=== PATIENT | female | born 1950 | race Two or more races ===

== ENCOUNTER 2021-03-14 17:51 | Emergency (ER) | payer MEDICARE, OTHER ==
[~2021-03-14] VITALS: Ht 144.8 cm; Wt 59.0 kg
[~2021-03-14 17:51] MED LIST: AMLO-489 PO; METF-370 PO; OMEP20CA74 PO
[2021-03-14 21:40] VITALS: BP 129/74
== END 2021-03-14 21:56 | disposition home or self-care (01) ==
LOC: ER 17:51
DX: S92.512A Displaced fracture of proximal phalanx of left lesser toe(s), initial encounter for closed fracture (principal); S83.92XA Sprain of unspecified site of left knee, initial encounter; M25.552 Pain in left hip; R51.9 Headache, unspecified; I10 Essential (primary) hypertension; K21.9 Gastro-esophageal reflux disease without esophagitis; Z79.899 Other long term (current) drug therapy; W01.0XXA Fall on same level from slipping, tripping and stumbling without subsequent striking against object, initial encounter; Y93.89 Activity, other specified; Y92.89 Other specified places as the place of occurrence of the external cause; Y99.8 Other external cause status
CPT/HCPCS: 70450; 73620; 73700

== ENCOUNTER 2023-06-13 18:43 | Inpatient (IN) | payer OTHER ==
[~2023-06-13] VITALS: Ht 142.2 cm; Wt 59.8 kg
[~2023-06-13 18:43] MED LIST changes: -AMLO-489 PO; +AMLO1TAB22 PO
[2023-06-13] MEDS ORDERED: ONDANSETRON ODT 4 MG TAB PO ONE (23:00)
[2023-06-13] MEDS ORDERED: HYDROcodone-ACET 5/325MG TAB PO ONE (23:00)
[2023-06-14] MEDS ORDERED: DexAMETHasone SOD PHOS 10MG/1ML VIAL INJ IV ONE (02:15)
[2023-06-14 02:22] LABS: Basophils # (auto) 0.1 10 ^3/uL (0-0.2); Basophils % (auto) 0.5 % (0.0-2.0); Eosinophils # (auto) 0.3 10 ^3/uL (0-0.8); Eosinophils % (auto) 2.4 % (0.0-7.0); Hematocrit 41.3 % (36.0-46.0); Hemoglobin 13.4 g/dL (12.2-16.2); Lymphocytes % (auto) 26.5 % (10.0-50.0); Mean Corpuscular Hgb Conc. 32.4 g/dL (32.0-36.0); Mean Corpuscular Volume 92.5 fL (80.0-100.0); Monocytes % (auto) 9.1 % (0.0-12.0); Neutrophils % (auto) 61.5 % (37.0-80.0); Nucleated Red Blood Cells % 0.2 %; Red Blood Cells 4.46 10^6/uL (4.0-5.20); Red Cell Distribution Width 14.8 % (11.8-14.3); White Blood Cell 11.4 10^3/uL (4.4-10.8)
[2023-06-14 02:28] LABS: Alanine Aminotransferase 14 U/L (7-40); Albumin 4.7 g/dL (3.2-4.8); Alkaline Phosphatase 95 U/L (46-116); Anion Gap 6 (5-15); Aspartate Aminotransferase 15 U/L (13-40); BUN/Creatinine Ratio 12.6 (10.0-20.0); Bilirubin, Total 0.6 mg/dL (0.2-1.0); Blood Urea Nitrogen 12 mg/dL (9-23); Carbon Dioxide 28 mmol/L (20-30); Chloride 107 mmol/L (98-107); Glucose 118 mg/dL (74-106); Potassium 3.3 mmol/L (3.5-5.1); Sodium 141 mmol/L (136-145); Total Protein 7.4 g/dL (5.7-8.2)
[2023-06-14] MEDS ORDERED: MORPHINE SULFATE INJ 2 MG/ml SYRG IV PRN (02:30)
[2023-06-14] MEDS ORDERED: ONDANSETRON HCL 4 MG/2 ML VIAL IV PRN (02:30)
[2023-06-14] MEDS ORDERED: ACETAMINOPHEN 325 MG TAB PO PRN ×2 (02:30)
[2023-06-14] MEDS ORDERED: HYDROcodone-ACET 5/325MG TAB PO PRN (02:30)
[2023-06-14 02:40] VITALS: PULSE 60; RESP 18; O2SAT 95
[2023-06-14] MEDS ORDERED: BACL20TA PO (05:50)
[2023-06-14] MEDS ORDERED: OMEP-448 PO (05:50)
[2023-06-14] MEDS ORDERED: GABA-1250 PO (05:50)
[2023-06-14] MEDS ORDERED: CALC-239 PO (05:52)
[2023-06-14 08:00] VITALS: PULSE 77; RESP 16; O2SAT 96
[2023-06-14 09:00] VITALS: BP_SYST 125; BP_SYST 155; BP_DIAS 48; BP_DIAS 72; PULSE 65; PULSE 82; RESP 16; RESP 17; TEMP 97.8; TEMP 98.2; O2SAT 95; O2SAT 99
[2023-06-14] MEDS ORDERED: PANTOPRAZOLE 40 MG TAB PO SCH (10:00)
[2023-06-14] MEDS ORDERED: amLODIPine BESYLATE 5 MG TAB PO SCH (10:00)
[2023-06-14 12:41] VITALS: BP 126/55; PULSE 60; RESP 16; TEMP 98.5; O2SAT 98
[2023-06-14] MEDS ORDERED: methylPREDNISolone SOD SUCC 40 MG/ML VL IV SCH (14:00)
[2023-06-14] MEDS ORDERED: PRED20TA2 PO ×2 (14:34→14:36)
[2023-06-14 16:12] VITALS: BP 123/59
[2023-06-14 16:45] VITALS: BP 121/49; PULSE 62; RESP 15; TEMP 98.9; O2SAT 98
== END 2023-06-14 16:30 | disposition home or self-care (01) | DRG 552 ==
LOC: ER 18:43 → OVERFLOW 06-14 02:18 → WEST WING 06-14 05:45
PROVIDERS: ADMIT Nurse Practitioner; ATTEND Nurse Practitioner
DX: M51.16 Intervertebral disc disorders with radiculopathy, lumbar region (principal); M48.061 Spinal stenosis, lumbar region without neurogenic claudication; G89.29 Other chronic pain; I10 Essential (primary) hypertension; M19.90 Unspecified osteoarthritis, unspecified site; K21.9 Gastro-esophageal reflux disease without esophagitis; Z85.42 Personal history of malignant neoplasm of other parts of uterus; Z90.710 Acquired absence of both cervix and uterus
CPT/HCPCS: 36415; 80053; 83880; 84484; 85025; G0378; Q0162

== ENCOUNTER 2023-11-10 09:38 | Emergency (ER) | payer OTHER ==
[~2023-11-10] VITALS: Ht 154.9 cm; Wt 59.1 kg
[~2023-11-10 09:38] MED LIST changes: +BACL20TA PO; +CALC-239 PO; +GABA-1250 PO; +OMEP-448 PO; +PRED20TA2 PO
[2023-11-10] MEDS: KETOROLAC TROMETH 30 MG/ML 1ML VIAL IM ONE (11:44)
[2023-11-10] MEDS ORDERED: IBUP1TAB5 PO (12:23)
[2023-11-10 12:32] VITALS: BP 143/77; PULSE 70; RESP 18; TEMP 98.1; O2SAT 98
== END 2023-11-10 12:35 | disposition home or self-care (01) ==
LOC: ER 09:38
DX: S43.401A Unspecified sprain of right shoulder joint, initial encounter (principal); S90.31XA Contusion of right foot, initial encounter; K21.9 Gastro-esophageal reflux disease without esophagitis; I10 Essential (primary) hypertension; Z90.710 Acquired absence of both cervix and uterus; X50.1XXA Overexertion from prolonged static or awkward postures, initial encounter; Y93.89 Activity, other specified; Y92.89 Other specified places as the place of occurrence of the external cause; Y99.8 Other external cause status
CPT/HCPCS: 73030; 73590; 73630; 96372; 99284; J1885

== ENCOUNTER 2024-09-17 23:24 | Inpatient (IN) | payer OTHER ==
[~2024-09-17] VITALS: Ht 142.2 cm; Wt 58.3 kg
[~2024-09-17 23:24] MED LIST changes: +IBUP1TAB5 PO
--- NOTE | 2024-09-17 23:48 | ED.PDOC ---
GI ASSESSMENT HPI Comments A 73 year old female presents to the ED with a chief complaint of abdominal pain onset today. Patient states she woke up today experiencing epigastric pain as well as nausea/ vomiting. Patient also states her household recently tested positive for Influenza. Patient has a past medical history of HTN, GERD, arthritis. Denies headache, dizziness, chest pain, shortness of breath, diarrhea, constipation, dysuria, hematuria. No other symptoms or modifying factors present at this time. Chief Complaint: Abdominal Pain Time Seen by MD: 23:42 Primary Care Provider: NONE Reviewed Notes: Medications, Allergies Allergies: Coded Allergies: NO KNOWN ALLERGIES (Unverified , 05/27/14) Home Meds Active Scripts Ibuprofen Micronized (Ibuprofen) 600 Mg Tab, 600 MG PO Q6HPRN PRN for 5 Days, #20 TAB Prov:SHA GU TRIMMING PRESS OPERATOR 11/10/23 Prednisone (Prednisone) 20 Mg Tab, 20 MG PO DAILY for 7 Days, #7 MG Prov:CHRISTOPHER CHOWDHURY CARTON WRAPPER 06/14/23 Reported Medications Calcium Ascorbate (Vitamin C) 500 Mg Tab, 500 MG PO DAILY, TAB 06/14/23 Gabapentin (Gabapentin) 300 Mg Cap, 300 MG PO HS, CAP 06/14/23 Baclofen (Baclofen) 20 Mg Tab, 10 MG PO BID, TAB 06/14/23 Omeprazole (Omep[address] Dr) 40 Mg Cap, 1 CAP PO DAILY 06/14/23 Omeprazole (PRILOSEC) 20 Mg Cap, 1 CAP PO HS, #90 CAP 1 Refill 05/28/14 Metformin Hydrochloride (Metformin Hcl) 500 Mg Tab, 500 MG PO DAILY, #0.5 MG 05/28/14 Amlodipine Besylate (Amlodipine Besylate) 5 Mg Tab, 5 MG PO DAILY for 30 Days, MG 05/28/14 Information Source: Patient Mode of Arrival: Ambulatory Timing: Hours Duration: Since onset Prehospital treatment: None Severity: Moderate Recent: None Recent Hx of: None Pain Location: Epigastric Modifying Factors: Nothing Associated sign and symptoms: Nausea, Vomiting, Abdominal Pain Past Medical History PAST MEDICAL HISTORY: Arthritis, GERD, HTN 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 History: Other Family History Family History: Unknown Social History Smoker: Non-Smoker Alcohol: Denies ETOH Use Drugs: Denies Drug Use Lives In: Home Constitutional: denies: chills, diaphoresis, fatigue, fever, malaise, sweats, weakness, others EENTM: denies: blurred vision, double vision, ear bleeding, ear discharge, ear drainage, ear pain, ear ringing, eye pain, eye redness, hearing loss, mouth pain, mouth swelling, nasal discharge, nose bleeding, nose congestion, nose pain, photophobia, tearing, throat pain, throat swelling, voice changes, others Respiratory: denies: cough, hemoptysis, orthopnea, SOB at rest, shortness of breath, SOB with excertion, stridor, wheezing, others Cardiovascular: denies: chest pain, dizzy spells, diaphoresis, Dyspnea on exertion, edema, irregular heart beat, left arm pain, lightheadedness, palpitations, PND, syncope, others Gastrointestinal: reports: abdominal pain, nausea, vomiting; denies: abdomen distended, blood streaked bowels, constipated, diarrhea, dysphagia, difficulty swallowing, hematemesis, melena, poor appetite, poor fluid intake, rectal bleeding, rectal pain, others Genitourinary: denies: abnormal vagina bleeding, burning, dyspareunia, dysuria, flank pain, frequency, hematuria, incontinence, pain, , vagina discharge, urgency, others Neurological: denies: dizziness, fainting, headache, left sided numbness, left sided weakness, numbness, paresthesia, pre-existing deficit, right sided numbness, right sided weakness, seizure, speech problems, tingling, tremors, weakness, others Musculoskeletal: denies: back pain, gout, joint pain, joint swelling, muscle pain, muscle stiffness, neck pain, others Integumetry: denies: bruises, change in color, change in hair/nails, dryness, laceration, lesions, lumps, rash, wounds, others Allergic/Immunocompromised: denies: Difficulty Healing, Frequent Infections, Hives, Itching, others Hematologic/Lymphatic: denies: anemia, blood clots, easy bleeding, easy bruising, swollen glands, others Endocrine: denies: excessive hunger, excessive sweating, excessive thirst, excessive urination, flushing, intolerance to cold, intolerance to heat, unexplained weight gain, unexplained weight loss, others Psychiatric: denies: anxiety, bipolar disorder, depression, hopeless, panic disorder, schizophrenia, sleepless, suicidal, others All Other Systems: Reviewed and Negative Physical Exam General Appearance: No Apparent Distress, Normal HEENT: Normal ENT Inspection, Pharynx Normal, TMs Normal Neck: Full Range of Motion, Non-Tender, Normal, Normal Inspection Respiratory: Chest Non-Tender, Lungs Clear, No Accessory Muscle Use, No Respira tory Distress, Normal Breath Sounds Cardiovascular: No Edema, No JVD, No Murmur, No Gallop, Normal Peripheral Pulses, Regular Rate/Rhythm Breast Exam: Deferred Gastrointestinal: No Organomegaly, Non Tender, No Pulsatile Mass, Normal Bowel Sounds, Soft Genitalia: Deferred Pelvic: Deferred Rectal: Deferred Extremities: No calf tenderness, Normal capillary refill, Normal inspection, Normal range of motion, Non-tender, No pedal edema Musculoskeletal : Apperance: Normal Neurologic: Alert, weatherization administrator II-XII nml as Tested, No Motor Deficits, Normal Affect, Normal Mood, No Sensory Deficits Cerebellar Function: Normal Reflexes: Normal Skin: Dry, Normal Color, Warm Lymphatic: No Adenopathy Was a procedure done? Was a procedure done?: No GI differential Dx Differential Diagnosis: Appendicitis, Gastritis/PUD, Gastroenteritis, Pancreatitis, UTI, Urolithiasis, Electrolyte Imbalance, Viral X-Ray, Labs, Meds, VS Vital Signs Date Time Temp Pulse Resp B/P (MAP) Pulse Ox O2 Delivery O2 Flow Rate FiO2 09/17/24 23:33 97.8 82 16 188/87 (120) 97 Lab Test 09/18/24 00:49 09/18/24 00:00 09/17/24 23:50 Range/Units Troponin I High Sensitivity Pending 3 L </=34 ng/L Urine Color Straw Yellow Urine Clarity Clear Clear Urine pH 7.0 5.0-9.0 Urine Specific Bruner 1.011 1.001-1.035 Urine Protein Negative Negative Urine Ketones Negative Negative Urine Blood Negative Negative /uL Urine Nitrite Negative Negative Urine Bilirubin Negative Negative Urine Urobilinogen Normal Negative mg/dL Urine Leukocyte Esterase Negative Negative /uL Urine RBC 1 0 - 4 /hpf Urine WBC <1 0 - 5 /hpf Urine Squamous Epithelial Cells Few <5 /hpf Urine Bacteria None seen None Seen /hpf Urine Glucose Normal Normal mg/dL White Blood Count 12.8 H 4.4-10.8 10^3/uL Red Blood Count 4.68 4.0-5.20 10^6/uL Hemoglobin 14.4 12.2-16.2 g/dL Hematocrit 43.7 36.0-46.0 % Mean Corpuscular Volume 93.4 80.0-100.0 fL Mean Corpuscular Hemoglobin 30.8 28.0-32.0 pg Mean Corpuscular Hemoglobin Concent 33.0 32.0-36.0 g/dL Red Cell Distribution Width 14.8 H 11.8-14.3 % Platelet Count 383 140-450 10^3/uL Mean Platelet Volume 8.1 6.9-10.8 fL Neutrophils (%) (Auto) 66.1 37.0-80.0 % Lymphocytes (%) (Auto) 22.4 10.0-50.0 % Monocytes (%) (Auto) 8.9 0.0-12.0 % Eosinophils (%) (Auto) 1.9 0.0-7.0 % Basophils (%) (Auto) 0.7 0.0-2.0 % Neutrophils # (Auto) 8.5 1.6-8.6 10 ^3/uL Lymphocytes # (Auto) 2.9 0.4-5.4 10 ^3/uL Monocytes # (Auto) 1.1 0-1.3 10 ^3/uL Eosinophils # (Auto) 0.2 0-0.8 10 ^3/uL Basophils # (Auto) 0.1 0-0.2 10 ^3/uL Nucleated Red Blood Cells 0.0 % Sodium Level 141 136-145 mmol/L Potassium Level 4.1 3.5-5.1 mmol/L Chloride Level 107 98-107 mmol/L Carbon Dioxide Level 28 20-31 mmol/L Anion Gap 6 5-15 Blood Urea Nitrogen 15 9-23 mg/dL Creatinine 0.79 0.550-1.02 mg/dL Glomerular Filtration Rate Calc 78 >90 mL/min BUN/Creatinine Ratio 19.0 10.0-20.0 Serum Glucose 117 H 74-106 mg/dL Lactic Acid Level 1.2 0.4-2.0 mmol/L Calcium Level 10.1 8.7-10.4 mg/dL Total Bilirubin 0.5 0.2-1.0 mg/dL Aspartate Amino Transferase (AST) 14 13-40 U/L Alanine Aminotransferase (ALT) 19 7-40 U/L Alkaline Phosphatase 111 46-116 U/L Total Protein 7.2 5.7-8.2 g/dL Albumin 4.4 3.2-4.8 g/dL Lipase 38 12-53 U/L [address] [address] Ph: [phone] DIAGNOSTIC IMAGING Diagnostic Imaging Report : [id number] Signed PATIENT: ÁNGELA CAVAZOS ACCT: [id number] UNIT: [id number] : 1950 LOC: ER ROOM / BED: / AGE / SEX: 73 / F ADM STATUS: REG ER SERVICE [id number] ORDERING PHYSICIAN: ROSITA BENZ MD PROCEDURE(s): ABPLIV - CT AB PEL WITH IV CON ONLY REASON: abdominal pain ORDER NUMBER(s): [id number], ACCESSION NUMBER(s): [id number] Exam: CT CT AB PEL WITH IV CON ONLY History: abdominal pain Comparison Study: None available at time of dictation. Contrast: Type of contrast: Omnipaque 300 Contrast injected: 100 mL Contrast wasted: 0 TECHNIQUE: A digital custody officer image was obtained. During the uneventful, intravenous administration of contrast material, multislice data acquisition was obtained through the abdomen and pelvis. The data set was subsequently reconstructed into axial images. Images were reviewed on a work station using a combination of axial and multiplanar using a variety of window levels and settings. Radiation Dose Information: CT Dose: CTDI volume is 13.36 mGy. Dose-length product is 752.22 mGy*cm FINDINGS: Lung Bases: No acute or significant lung base finding. Normal heart size. No pleural or pericardial effusion. Liver: The liver is normal in size. No focal lesions. Normal hepatic vascular enhancement. Gallbladder and Biliary Tree: Gallbladder has been surgically removed. Spleen: Unremarkable Pancreas: The pancreas is normal in appearance without focal lesions or abnormal enhancement. Adrenal Glands: Unremarkable Kidneys: Kidneys demonstrate normal symmetric enhancement without focal lesions, calculi or hydronephrosis. Bladder: Unremarkable Bowel: The stomach is grossly normal in appearance. Small bowel and colon are normal in caliber and distribution. Postop changes in the right abdomen. Fluid- filled small bowel not abnormally distended may represent enteritis. The appendix is not visualized; however, no secondary findings of acute appendicitis identified. Ascites: Absent Lymphadenopathy: No mesenteric, retroperitoneal or periportal lymphadenopathy. Abdominal Wall and Mesentery: Unremarkable. Vasculature: The visualized abdominal aorta is normal in size and caliber. Abdominal and pelvic vessels demonstrate normal enhancement. Pelvic Organs: Unremarkable Musculoskeletal: No aggressive focal bony lesions, acute fractures or dislocation. Soft tissues: Unremarkable. IMPRESSION: 1. Postop changes in the right abdomen. 2. Nondilated fluid-filled small bowel may represent enteritis. 3. Single loop of fluid-filled small bowel measuring 17 mm in diameter compressing the subcutaneous fat in the right lower quadrant. All CT scans at this medical facility are performed using dose modulation techniques as appropriate to a performed exam including the following: Automated exposure control was utilized; adjustment of the MA and/or KV according to patient size; and use of iterative reconstruction technique. HS:Y ATED BY: RAMIREZ GAUTAM Jr., DO DICTATED DATE/TIME: 09/18/2455 SIGNED BY: RAMIREZ GAUTAM Jr., DO SIGNED DATE/TIME: 09/18/2455 CC: [place] [id number] Ph: [phone] DIAGNOSTIC IMAGING Diagnostic Imaging Report : [id number] Signed PATIENT: ÁNGELA CAVAZOS ACCT: [id number] UNIT: [id number] : 1950 LOC: ER ROOM / BED: / AGE / SEX: 73 / F ADM STATUS: REG ER SERVICE 43 ORDERING PHYSICIAN: ROSITA BENZ MD PROCEDURE(s): CXRP - CHEST PORTABLE REASON: abdominal pain ORDER NUMBER(s): [id number], ACCESSION NUMBER(s): [id number] CHEST RADIOGRAPH Indication: abdominal pain Technique: Single frontal view of the chest was obtained Comparison: None FINDINGS: Lines and Tubes: None Lungs: No focal consolidation. Pleura: No effusion. No pneumothorax. Cardiomediastinal contours: Unremarkable Bones: No acute osseous abnormality. IMPRESSION: 1. No acute cardiopulmonary disease. HS:Y ATED BY: RAMIREZ GAUTAM Jr., DO DICTATED DATE/TIME: 09/18/2441 SIGNED BY: RAMIREZ GAUTAM Jr., DO SIGNED DATE/TIME: 09/18/24 0042 CC: Time of 1ST Reevaluation: 00:12 Reevaluation 1ST: Unchanged Patient Education/Counseling: Diagnosis, Treatment, Prognosis Family Education/Counseling: No Family Present Additional Information I reviewed the following notes from patient's past medical encounters: The following tests were ordered, and results were reviewed by me: CBC, CMP, LIPASE, LA W/REFLEX, UA, TROP, TROP, TROP, XY CHEST, CT AB PEL WITH IV CON I reviewed and agreed with the following test results read by other providers: XY CHEST, CT AB PEL WITH IV CON I discussed treatment and results with medical personnel and: patient Departure 1 Departure Time of Disposition: 01:38 (Patient presented with abdominal pain that was concerning for possible appendicits, gastritis, cholecystitis, colitis, gastr oenteritis, sbo, or orther possible surgical emergency. Data: 1. I ordered and reviewed the result of at least 3 labs including a CBC, BMP, and Urinalysis. 2. I independently interpreted the following tests: CT Abdoment and Pelvis is concerning for colitis and compression of the intra abdominal pad .Risk:This patient has a high risk of morbidity due to further diagnostic testing or treatment and may suffer from an acute abdominal process disorder. Workup reveals colitis intractable abdominal pain and patient should be admitted for further workup. and possible expert consultation. ) Impression: Primary Impression: Non-specific colitis Additional Impression: Intractable abdominal pain Disposition: 09 ADMITTED INPATIENT Admit to: Med Surg Condition: Serious Critical Care Note Critical Care Time?: Yes Critical care comment: Intractable abdominal pain Authorized and Performed by: Rosita Benz MD Total critical care time: Approximately 48 minutes Due to a high probability of clinically significant, life threatening deterioration, the patient required my highest level of preparedness to intervene emergently and I personally spent this critical care time directly and personally managing the patient. This critical care time included obtaining a history; examining the patient; pulse oximetry; ordering and review of studies; arranging urgent treatment with development of a management plan; evaluation of patient's response to treatment; frequent reassessment; and, discussions with other providers. This critical care time was performed to assess and manage the high probability of imminent, life-threatening deterioration that could result in multi-organ failure. It was exclusive of separately billable procedures and treating other patients and teaching time. Please see my other sections and the rest of the note for further information on patient assessment and treatment. Stability Stability form required: No I personally scribed for ROSITA BENZ MD ([email or web address]) on 09/17/24 at 23:48. Electronically submitted by Kimi Suazo ([email or web address]). I personally scribed for ROSITA BENZ MD ([email or web address]) on 09/17/24 at 23:49. Electronically submitted by Kimi Suazo ([email or web address]). I personally scribed for ROSITA BENZ MD ([email or web address]) on 09/18/24 at 01:18. Electronically submitted by Kimi Suazo ([email or web address]). ROSITA BENZ MD Sep 17, 2024 23:48
[2024-09-18] MEDS: IOHEXOL 300 MG/ML 100ML BOTTLE IJ ONE (00:06)
[2024-09-18 00:07] LABS: Basophils # (auto) 0.1 10 ^3/uL (0-0.2); Basophils % (auto) 0.7 % (0.0-2.0); Eosinophils # (auto) 0.2 10 ^3/uL (0-0.8); Eosinophils % (auto) 1.9 % (0.0-7.0); Hematocrit 43.7 % (36.0-46.0); Hemoglobin 14.4 g/dL (12.2-16.2); Lymphocytes # (auto) 2.9 10 ^3/uL (0.4-5.4); Lymphocytes % (auto) 22.4 % (10.0-50.0); Mean Corpuscular Hemoglobin 30.8 pg (28.0-32.0); Mean Corpuscular Volume 93.4 fL (80.0-100.0); Monocytes # (auto) 1.1 10 ^3/uL (0-1.3); Monocytes % (auto) 8.9 % (0.0-12.0); Neutrophils # (auto) 8.5 10 ^3/uL (1.6-8.6); Neutrophils % (auto) 66.1 % (37.0-80.0); Platelet Count (auto) 383 10^3/uL (140-450); Red Blood Cells 4.68 10^6/uL (4.0-5.20); Red Cell Distribution Width 14.8 % (11.8-14.3); White Blood Cell 12.8 10^3/uL (4.4-10.8)
[2024-09-18 00:18] LABS: Alanine Aminotransferase 19 U/L (7-40); Albumin 4.4 g/dL (3.2-4.8); Alkaline Phosphatase 111 U/L (46-116); Anion Gap 6 (5-15); Aspartate Aminotransferase 14 U/L (13-40); Calcium 10.1 mg/dL (8.7-10.4); Carbon Dioxide 28 mmol/L (20-31); Lipase 38 U/L (12-53); Potassium 4.1 mmol/L (3.5-5.1); Sodium 141 mmol/L (136-145)
[2024-09-18 00:19] LABS: Urine Bacteria None Seen /hpf (None Seen)
[2024-09-18 00:19] LABS: Bilirubin, Total 0.5 mg/dL (0.2-1.0); Total Protein 7.2 g/dL (5.7-8.2)
[2024-09-18 00:20] LABS: Chloride 107 mmol/L (98-107); Glucose 117 mg/dL (74-106)
[2024-09-18 00:29] LABS: Blood Urea Nitrogen 15 mg/dL (9-23)
[2024-09-18 00:36] LABS: Urine Blood Negative /uL (Negative); Urine Clarity Clear (Clear); Urine Protein, UAD Negative (Negative); Urine Specific Gravity 1.011 (1.001-1.035); Urine Squamous Epithelial Cell FEW /hpf (<5); Urine Urobilinogen Normal (Negative); Urine WBC <1 /hpf (0 - 5)
[2024-09-18 00:38] LABS: Urine Color STRAW (Yellow)
--- NOTE | 2024-09-18 00:45 | DVH ---
CHEST RADIOGRAPH Indication: abdominal pain Technique: Single frontal view of the chest was obtained Comparison: None FINDINGS: Lines and Tubes: None Lungs: No focal consolidation. Pleura: No effusion. No pneumothorax. Cardiomediastinal contours: Unremarkable Bones: No acute osseous abnormality. IMPRESSION: 1. No acute cardiopulmonary disease. HS:Y
--- NOTE | 2024-09-18 00:58 | DVH ---
Exam: CT CT AB PEL WITH IV CON ONLY History: abdominal pain Comparison Study: None available at time of dictation. Contrast: Type of contrast: Omnipaque 300 Contrast injected: 100 mL Contrast wasted: 0 TECHNIQUE: A digital diamond finishing supervisor image was obtained. During the uneventful, intravenous administration of c ontrast material, multislice data acquisition was obtained through the abdomen and pelvis. The data s et was subsequently reconstructed into axial images. Images were reviewed on a work station using a c ombination of axial and multiplanar using a variety of window levels and settings. Radiation Dose Information: CT Dose: CTDI volume is 13.36 mGy. Dose-length product is 752.22 mGy*cm FINDINGS: Lung Bases: No acute or significant lung base finding. Normal heart size. No pleural or pericardial effusion. Liver: The liver is normal in size. No focal lesions. Normal hepatic vascular enhancement. Gallbladder and Biliary Tree: Gallbladder has been surgically removed. Spleen: Unremarkable Pancreas: The pancreas is normal in appearance without focal lesions or abnormal enhancement. Adrenal Glands: Unremarkable Kidneys: Kidneys demonstrate normal symmetric enhancement without focal lesions, calculi or hydroneph rosis. Bladder: Unremarkable Bowel: The stomach is grossly normal in appearance. Small bowel and colon are normal in caliber and d istribution. Postop changes in the right abdomen. Fluid-filled small bowel not abnormally distended m ay represent enteritis. The appendix is not visualized; however, no secondary findings of acute appe ndicitis identified. Ascites: Absent Lymphadenopathy: No mesenteric, retroperitoneal or periportal lymphadenopathy. Abdominal Wall and Mesentery: Unremarkable. Vasculature: The visualized abdominal aorta is normal in size and caliber. Abdominal and pelvic vess els demonstrate normal enhancement. Pelvic Organs: Unremarkable Musculoskeletal: No aggressive focal bony lesions, acute fractures or dislocation. Soft tissues: Unremarkable. IMPRESSION: 1. Postop changes in the right abdomen. 2. Nondilated fluid-filled small bowel may represent enteritis. 3. Single loop of fluid-filled small bowel measuring 17 mm in diameter compressing the subcutaneous f at in the right lower quadrant. All CT scans at this medical facility are performed using dose modulation techniques as appropriate t o a performed exam including the following: Automated exposure control was utilized; adjustment of th e MA and/or KV according to patient size; and use of iterative reconstruction technique. HS:Y
[2024-09-18] MEDS: SODIUM CHLORIDE 0.9% 1,000 ML IV ONE (02:12)
[2024-09-18] MEDS: metroNIDAZOLE 500MG/100ML 100 ML IV ONE (02:14)
--- NOTE | 2024-09-18 02:20 | DVHHPRES ---
History of Present Illness Resident Creating Document: ROLAND HSU RESIDENT History of Present Illness This is a 73-year-old female with past medical history of hypertension, GERD, arthritis, prediabetes presented to the ED with a chief complaint of intractable abdominal pain and vomiting since morning prior to this admission. Patient stated that she has experiencing abdominal pain which was since morning which was sharp stabbing pain, constant localized, 10/10 and associated with 1 episodes of vomiting. The patient denies headache, chills, fever, malaise, dizz iness, diaphoresis, chest pain, nausea, dysuria, hematuria or any change in the bowel movement. Past Medical History Hypertension, GERD, arthritis, prediabetes Past Surgical History Total abdominal hysterectomy for uterine cancer in 2018, cholecystectomy, appendectomy, umbilical hernia repair and stomach surgery in 1985 Family History Type 2 diabetes mellitus runs in the family Past Social History Lives with daughter Nonsmoker, nonalcoholic and never tried any drugs Review of Systems Constitutional: No: Fever, Chills, Sweats, Weakness, Malaise, Other Eyes: No: Pain, Vision change, Conjunctivae inflammation, Eyelid inflammation, Other, Redness ENT: No: Ear pain, Ear discharge, Nose pain, Nose discharge, Nose congestion, Mouth pain, Mouth swelling, Throat pain, Throat swelling, Other Respiratory: No: Cough, Dry, Shortness of breath, SOB with excertion, Wheezing, Hemoptysis, Pleuritic Pain, Sputum, Wheezing, Other Cardiovascular: No: Chest Pain, Palpitations, Orthopnea, Paroxysmal Noc. Dyspnea, Edema, Lt Headedness, Other Gastrointestinal: Vomiting, Abdominal Pain; No: Nausea, Diarrhea, Constipation, Melena, Hematochezia, Other Genitourinary: No Dysuria, No Frequency, No Incontinence, No Hematuria, No Retention, No Other Musculoskeletal: No: other, neck pain, shoulder pain, arm pain, back pain, hand pain, leg pain, foot pain Skin: No: Rash, Lesions, Jaundice, Bruising, Other Neurological: No: Weakness, Numbness, Incoordination, Change in speech, Confusion, Seizures, Other Allergies: Coded Allergies: NO KNOWN ALLERGIES (Unverified , 05/27/14) Exam Vital Signs Vital Signs Date Time Temp Pulse Resp B/P (MAP) Pulse Ox O2 Delivery O2 Flow Rate FiO2 09/17/24 23:33 97.8 82 16 188/87 (120) 97 Exam Physical examination: General Appearance: Alert, Oriented X3, Cooperative, No acute distress HEENT: Atraumatic, PERRLA, EOMI, Mucous membrane moist/pink Respiratory: Clear to auscultation, Normal air movement Cardiovascular: Regular rate, Normal S1, Normal S2, No murmurs, no chest wall tenderness Abdominal: Normal bowel sounds, Soft, mild tenderness in the lower abdomen, No hepatospenomegaly, No masses Extremities: No clubbing, No cyanosis, No edema, Normal pulses, No tenderness/swelling Skin: No rashes, No breakdown, No significant lesion Neuro: Normal gait, Normal speech, Strength at 5/5 X4 ext, Normal tone, Se nsation intact, grossly intact cranial nerves Psych/Mental Status: Mental status NL, Mood NL Labs/Xrays Labs Test 09/18/24 00:49 09/18/24 00:00 09/17/24 23:50 Range/Units Troponin I High Sensitivity 3 L </=34 ng/L Urine Color Straw Yellow Urine Clarity Clear Clear Urine pH 7.0 5.0-9.0 Urine Specific [place] 1.011 1.001-1.035 Urine Protein Negative Negative Urine Ketones Negative Negative Urine Blood Negative Negative /uL Urine Nitrite Negative Negative Urine Bilirubin Negative Negative Urine Urobilinogen Normal Negative mg/dL Urine Leukocyte Esterase Negative Negative /uL Urine RBC 1 0 - 4 /hpf Urine WBC <1 0 - 5 /hpf Urine Squamous Epithelial Cells Few <5 /hpf Urine Bacteria None seen None Seen /hpf Urine Glucose Normal Normal mg/dL White Blood Count 12.8 H 4.4-10.8 10^3/uL Red Blood Count 4.68 4.0-5.20 10^6/uL Hemoglobin 14.4 12.2-16.2 g/dL Hematocrit 43.7 36.0-46.0 % Mean Corpuscular Volume 93.4 80.0-100.0 fL Mean Corpuscular Hemoglobin 30.8 28.0-32.0 pg Mean Corpuscular Hemoglobin Concent 33.0 32.0-36.0 g/dL Red Cell Distribution Width 14.8 H 11.8-14.3 % Platelet Count 383 140-450 10^3/uL Mean Platelet Volume 8.1 6.9-10.8 fL Neutrophils (%) (Auto) 66.1 37.0-80.0 % Lymphocytes (%) (Auto) 22.4 10.0-50.0 % Monocytes (%) (Auto) 8.9 0.0-12.0 % Eosinophils (%) (Auto) 1.9 0.0-7.0 % Basophils (%) (Auto) 0.7 0.0-2.0 % Neutrophils # (Auto) 8.5 1.6-8.6 10 ^3/uL Lymphocytes # (Auto) 2.9 0.4-5.4 10 ^3/uL Monocytes # (Auto) 1.1 0-1.3 10 ^3/uL Eosinophils # (Auto) 0.2 0-0.8 10 ^3/uL Basophils # (Auto) 0.1 0-0.2 10 ^3/uL Nucleated Red Blood Cells 0.0 % Sodium Level 141 136-145 mmol/L Potassium Level 4.1 3.5-5.1 mmol/L Chloride Level 107 98-107 mmol/L Carbon Dioxide Level 28 20-31 mmol/L Anion Gap 6 5-15 Blood Urea Nitrogen 15 9-23 mg/dL Creatinine 0.79 0.550-1.02 mg/dL Glomerular Filtration Rate Calc 78 >90 mL/min BUN/Creatinine Ratio 19.0 10.0-20.0 Serum Glucose 117 H 74-106 mg/dL Lactic Acid Level 1.2 0.4-2.0 mmol/L Calcium Level 10.1 8.7-10.4 mg/dL Total Bilirubin 0.5 0.2-1.0 mg/dL Aspartate Amino Transferase (AST) 14 13-40 U/L Alanine Aminotransferase (ALT) 19 7-40 U/L Alkaline Phosphatase 111 46-116 U/L Total Protein 7.2 5.7-8.2 g/dL Albumin 4.4 3.2-4.8 g/dL Lipase 38 12-53 U/L Assessment/Plan Assessment/Plan Assessment and plan: # Intractable abdominal pain and vomiting likely due to enteritis - CBC revealed leukocytosis - Lipase is normal - CT abdomen pelvis demonstrated nondilated fluid-filled small bowel may represent enteritis. - Clear liquid diet - IV normal saline 75 mL per hour - cefazolin 2 g IV once and metronidazole 500 mg IV once - Morphine 4 mg IV once - ondansetron 4 mg IV Q 8 p.r.n. - IV ceftriaxone 1 g daily and IV metronidazole 500 mg t.i.d. # Hypertensive urgency - IV hydralazine 10 mg q.6 p.r.n. - Amlodipine 5 mg p.o. daily # Prediabetes, hemoglobin A1c 6 - Counseled patient regarding low carb diet, lifestyle modification and physical exercise # History of GERD - Protonix 40 mg po daily # DVT prophylaxis - Lovenox 40 mg sc daily Goal of Care discussed with the patient for more than 20 minutes full code Plan discussed with Dr. Feliz Plan discussed with: Patient, Other My Orders Orders - ROLAND HSU Procedure Category Date Status Time Admit ADMIT 09/18/24 Transmitted 02:14 Complete Blood Count LAB 09/18/24 Verified 04:00 NS PHA 09/18/24 Verified 02:30 Pantoprazole PHA 09/18/24 Verified (Protonix) 10:00 Ondansetron Hcl PHA 09/18/24 Verified (Zofran) 06:00 Blood Culture HAYDEN 09/18/24 Verified 02:16 Date of Service: Sep 18, 2024 Billing Provider: VARUN FELIZ MD Common Visit Codes: [id number] INP/OBS CARE (HIGH) Secondary Visit Codes: [id number] CARE PLAN 30 MINUTES ROLAND HSU Sep 18, 2024 02:20 VARUN FELIZ MD Sep 18, 2024 11:50
[2024-09-18] MEDS: ONDANSETRON HCL 4 MG/2 ML VIAL IV ONE (02:29)
[2024-09-18] MEDS: MORPHINE SULFATE 4 MG/ML SYR/VIAL IV ONE (02:30)
[2024-09-18 03:12] LABS: Basophils # (auto) 0.1 10 ^3/uL (0-0.2); Basophils % (auto) 0.9 % (0.0-2.0); Eosinophils # (auto) 0.2 10 ^3/uL (0-0.8); Eosinophils % (auto) 1.4 % (0.0-7.0); Hematocrit 41.3 % (36.0-46.0); Hemoglobin 13.5 g/dL (12.2-16.2); Lymphocytes # (auto) 2.6 10 ^3/uL (0.4-5.4); Mean Corpuscular Hemoglobin 30.7 pg (28.0-32.0); Mean Corpuscular Hgb Conc. 32.6 g/dL (32.0-36.0); Mean Corpuscular Volume 94.4 fL (80.0-100.0); Monocytes # (auto) 1.1 10 ^3/uL (0-1.3); Monocytes % (auto) 8.9 % (0.0-12.0); Neutrophils # (auto) 8.8 10 ^3/uL (1.6-8.6); Neutrophils % (auto) 68.8 % (37.0-80.0); Nucleated Red Blood Cells % 0.1 %; Platelet Count (auto) 338 10^3/uL (140-450); Red Blood Cells 4.38 10^6/uL (4.0-5.20); Red Cell Distribution Width 14.6 % (11.8-14.3); White Blood Cell 12.8 10^3/uL (4.4-10.8)
[2024-09-18] MEDS: SODIUM CHLORIDE 0.9% 1,000 ML IV SCH (03:20)
[2024-09-18] MEDS: ceFAZolin 2 GM/D5W50ml 50 ML IV ONE (04:21)
[2024-09-18 05:40] VITALS: O2SAT 96
[2024-09-18] MEDS ORDERED: ONDANSETRON HCL 4 MG/2 ML VIAL IV PRN (06:00)
[2024-09-18] MEDS: PANTOPRAZOLE 40 MG TAB PO SCH (06:49)
[2024-09-18 07:21] LABS: COVID19 ANTIGEN SOFIA FIA NEGATIVE (NEGATIVE)
[2024-09-18 07:22] LABS: Rapid Influenza A Negative (Negative); Rapid Influenza B Negative (Negative)
[2024-09-18 09:00] VITALS: BP 141/51; PULSE 58; RESP 16; TEMP 98; O2SAT 97
[2024-09-18] MEDS ORDERED: PANTOPRAZOLE 40 MG/10 ML VIAL INJ IV SCH (10:00)
[2024-09-18 10:27] LABS: Hepatitis B Surface Antigen Negative (Negative); Hepatitis C Antibody Negative (Negative)
[2024-09-18] MEDS: metroNIDAZOLE 500MG/100ML 100 ML IV SCH (11:18)
[2024-09-18] MEDS: amLODIPine BESYLATE 5 MG TAB PO SCH (11:30)
[2024-09-18 13:00] VITALS: BP 137/64; PULSE 60; RESP 16; TEMP 98.9; O2SAT 94
[2024-09-18] MEDS ORDERED: MORPHINE SULFATE INJ 2 MG/ml SYRG IV PRN (13:45)
[2024-09-18 17:00] VITALS: BP 121/64; PULSE 64; RESP 16; TEMP 97.9; O2SAT 94
[2024-09-18] MEDS: GABAPENTIN 300 MG CAP PO SCH (20:29)
[2024-09-18 21:00] VITALS: BP 140/64; PULSE 89; RESP 13; TEMP 98.3; O2SAT 95
[2024-09-19 01:00] VITALS: BP 134/63; PULSE 86; RESP 18; TEMP 97.5; O2SAT 96
[2024-09-19 05:00] VITALS: BP 135/61; PULSE 85; RESP 16; TEMP 97.9; O2SAT 97
[2024-09-19 09:00] VITALS: BP 146/69; PULSE 57; RESP 16; TEMP 98.6; O2SAT 96
[2024-09-19] MEDS: cefTRIAXone 1GM/50ML D5W 50 ML IV SCH (09:33)
--- NOTE | 2024-09-19 12:54 | DVHPN2 ---
Progress Note - Dictate Date Seen: Sep 19, 2024 Medical Necessity Reason Pt with a Central, PICC or Fol: No vital signs Vital Sign Date Time Temp Pulse Resp B/P (MAP) Pulse Ox O2 Delivery O2 Flow Rate FiO2 09/19/24 09:33 146/69 09/19/24 09:00 98.6 57 16 96 98.6 09/19/24 08:00 Room Air* 0 21 Total Intake and Output 09/18/24 09/18/24 09/19/24 15:00 23:00 07:00 Intake Total 480 ml 1060 ml 1290 ml Output Total 2 ml Balance 480 ml 1060 ml 1288 ml medications Current Medications Medications Dose Ordered Sig/Sai Route Start Time Stop Time Status Last Admin Dose Admin Sodium Chloride 1,000 ml @ 75 mls/hr [id number] IV 09/18/24 02:30 09/19/24 01:41 75 MLS/HR Ondansetron HCl 4 mg Q8HPRN PRN IV 09/18/24 06:00 Amlodipine Besylate 5 mg DAILY PO 09/18/24 10:00 09/19/24 09:33 5 MG Gabapentin 300 mg HS PO 09/18/24 22:00 09/18/24 20:29 300 MG Ceftriaxone Sodium 50 ml @ 100 mls/hr DAILY@09 IV 09/19/24 09:00 09/19/24 09:33 100 MLS/HR Metronidazole 100 ml @ 100 mls/hr Q8H IV 09/18/24 10:00 09/19/24 10:58 100 MLS/HR Hydralazine HCl 10 mg Q6HP PRN IV 09/18/24 03:15 Pantoprazole Sodium 40 mg DAILY@0600 PO 09/18/24 06:00 09/19/24 05:56 40 MG Acetaminophen/ Hydrocodone Bitart 1 tab Q4HPRN PRN PO 09/18/24 13:45 Morphine Sulfate 2 mg Q4HPRN PRN IV 09/18/24 13:45 Ondansetron HCl 4 mg Q4HPRN PRN IV 09/18/24 13:45 objective General Appearance: alert, no distress HEENT: EOMI, PERRLA, normal external inspect of ears, no icterus, no nasal drainage Neck: no carotid bruit, no jugular venous distention (JVD), no lymphadenopathy Chest: normal thorax Respiratory: clear to auscultation, normal air movement Cardiovascular: regular rate and rhythm, no diastolic murmur, no jugular venous distention (JVD), no rub, no systolic murmur Abdominal: soft, no hepatomegaly, no mass, no splenomegaly, no tenderness Genitourinary: grossly normal external Musculoskeletal: no joint tenderness, no swelling Extremities: normal pulses, no calf tenderness, no clubbing, no cyanosis, no edema Skin: no bruising, no jaundice, no rash Neurological: alert, No focal deficit laboratory and microbiology Laboratory Tests 09/18/24 02:30 09/17/24 23:50 Test 09/17/24 23:50 Range/Units Serum Glucose 117 H 74-106 mg/dL Problem List 1. Intractable abdominal pain most likely enteritis vs. gastric ulcer Monitor, GI consult, clear liquid diet 2. GERD Monitor, GI consult, PPI 3. Enteritis Monitor, GI consult, clear liquid diet 4. Hypertensive urgency Monitor, antihypertensives Assessment/Plan Subjective Patient is awake and alert. Objective Patient is a complaining of pain while eating. Patient was admitted for possible enteritis and rule out possible gastric ulcer. GI has been consulted. Plan Continue current treatment with PPI. Add Carafate. Continue IV fluid. Continue clear liquid diet. Plan discussed with: Patient, Other CASS WHITE NP Sep 19, 2024 12:54
[2024-09-19 13:00] VITALS: BP 156/66; PULSE 63; RESP 15; TEMP 98.2; O2SAT 97
--- NOTE | 2024-09-19 14:13 | DVHINCON2 ---
GI Consult Consult Note GI consult note Date of Consultation: 09/19/2024 Chief Complaint: Abdominal pain nausea and vomiting Referring Physician: Loraine FRANKLIN H&P: 73-year-old Finnish-speaking patient, daughter translating at bedside, presented to ER with abdominal pain and nausea and vomiting Patient started with epigastric abdominal pain about a week ago, and worsening last few days Patient also has nausea and vomiting for two days, none now, one episode of s light red blood Last BM one day ago, no melena or red blood in stool Patient has increased epigastric pain even with a clear liquid diet Patient has history of GERD, SP EGD 2012,diagnosed with gastritis treated with omeprazole SP abdominal surgery for SBO with mesh placement in 2013 SP diagnosed with uterine and ovarian cancer in 2017, status post hysterectomy with mesh removal Past Medical History: Hypertension, GERD, arthritis, prediabetes Past Surgical History: Total abdominal hysterectomy for uterine cancer in 2017, cholecystectomy, appendectomy, umbilical hernia repair and stomach surgery in 1985 Social History: NO smoking, drinking ETOH and use of illegal drugs. Family History: Noncontributory Review of Systems: Constitutional: no fever, chill, weight loss HEENT: no eye pain, no hearing loss, no oral lesion, no scleral icterus Heart: no chest pain, no chest pressure Lung: no cough, no dyspnea with exertion Abdomen: see HPI Physical exam: General: NAD, AAOX3 Chest: lung krishna clear to auscultation Heart: RRR, no murmur Abdomen: + epigastric tenderness to palpation, +BS Labs: Labs Test 09/18/24 06:15 09/18/24 02:30 09/18/24 00:49 09/18/24 00:00 Range/Units Influenza Type A Antigen Negative Negative Influenza Type B Antigen Negative Negative SARS-CoV-2 Antigen (Rapid) Negative NEGATIVE White Blood Count 12.8 H 4.4-10.8 10^3/uL Red Blood Count 4.38 4.0-5.20 10^6/uL Hemoglobin 13.5 12.2-16.2 g/dL Hematocrit 41.3 36.0-46.0 % Mean Corpuscular Volume 94.4 80.0-100.0 fL Mean Corpuscular Hemoglobin 30.7 28.0-32.0 pg Mean Corpuscular Hemoglobin Concent 32.6 32.0-36.0 g/dL Red Cell Distribution Width 14.6 H 11.8-14.3 % Platelet Count 338 140-450 10^3/uL Mean Platelet Volume 8.1 6.9-10.8 fL Neutrophils (%) (Auto) 68.8 37.0-80.0 % Lymphocytes (%) (Auto) 20.0 10.0-50.0 % Monocytes (%) (Auto) 8.9 0.0-12.0 % Eosinophils (%) (Auto) 1.4 0.0-7.0 % Basophils (%) (Auto) 0.9 0.0-2.0 % Neutrophils # (Auto) 8.8 H 1.6-8.6 10 ^3/uL Lymphocytes # (Auto) 2.6 0.4-5.4 10 ^3/uL Monocytes # (Auto) 1.1 0-1.3 10 ^3/uL Eosinophils # (Auto) 0.2 0-0.8 10 ^3/uL Basophils # (Auto) 0.1 0-0.2 10 ^3/uL Nucleated Red Blood Cells 0.1 % Hemoglobin A1c 6.0 H <5.7 % A1C Thyroid Stimulating Hormone (TSH) 2.57 0.55-4.78 uIU/mL Hepatitis B Surface Antigen Negative Negative Hepatitis C Antibody Negative Negative Troponin I High Sensitivity 3 L </=34 ng/L Urine Color Straw Yellow Urine Clarity Clear Clear Urine pH 7.0 5.0-9.0 Urine Specific [place] 1.011 1.001-1.035 Urine Protein Negative Negative Urine Ketones Negative Negative Urine Blood Negative Negative /uL Urine Nitrite Negative Negative Urine Bilirubin Negative Negative Urine Urobilinogen Normal Negative mg/dL Urine Leukocyte Esterase Negative Negative /uL Urine RBC 1 0 - 4 /hpf Urine WBC <1 0 - 5 /hpf Urine Squamous Epithelial Cells Few <5 /hpf Urine Bacteria None seen None Seen /hpf Urine Glucose Normal Normal mg/dL Test 09/17/24 23:50 Range/Units Sodium Level 141 136-145 mmol/L Potassium Level 4.1 3.5-5.1 mmol/L Chloride Level 107 98-107 mmol/L Carbon Dioxide Level 28 20-31 mmol/L Anion Gap 6 5-15 Blood Urea Nitrogen 15 9-23 mg/dL Creatinine 0.79 0.550-1.02 mg/dL Glomerular Filtration Rate Calc 78 >90 mL/min BUN/Creatinine Ratio 19.0 10.0-20.0 Serum Glucose 117 H 74-106 mg/dL Lactic Acid Level 1.2 0.4-2.0 mmol/L Calcium Level 10.1 8.7-10.4 mg/dL Total Bilirubin 0.5 0.2-1.0 mg/dL Aspartate Amino Transferase (AST) 14 13-40 U/L Alanine Aminotransferase (ALT) 19 7-40 U/L Alkaline Phosphatase 111 46-116 U/L Total Protein 7.2 5.7-8.2 g/dL Albumin 4.4 3.2-4.8 g/dL Lipase 38 12-53 U/L Microbiology Date/Time Source Procedure Growth Status 09/18/24 02:30 Blood Blood Culture - Preliminary NO GROWTH AFTER 24 HOURS OF INCUBATION. Resulted Imaging: CT abdomen pelvis IMPRESSION: 1. Postop changes in the right abdomen. 2. Nondilated fluid-filled small bowel may represent enteritis. 3. Single loop of fluid-filled small bowel measuring 17 mm in diameter compressing the subcutaneous fat in the right lower quadrant. Assessment: Acute abdominal pain Nausea and vomiting Enteritis History of GERD Gastritis Plan: Discussed with Dr. Reyes Protonix and Carafate Monitor labs Stool for culture and WBC Continue antibiotics We will continue to monitor the patient Plan discussed with patient, daughter and RN Thank you for the consult Date of Service: Sep 19, 2024 Billing Provider: CALVIN GARCIA Common Visit Codes: CONSULT ONLY Consultation Codes: [id number] CONSULT <60MIN CALVIN GARCIA Sep 19, 2024 14:13
[2024-09-19 17:00] VITALS: BP 162/74; PULSE 71; RESP 16; TEMP 98.1; O2SAT 96
[2024-09-19] MEDS: SUCRALFATE 1 GM/10 ML ORAL SUSP GT SCH (17:51)
[2024-09-19] MEDS: HYDROcodone-ACET 5/325MG TAB PO PRN (17:55)
[2024-09-19] MEDS ORDERED: OMEP-448 PO (17:55)
[2024-09-19] MEDS: hydrALAZINE HCL 20 MG/ML VL IV PRN (17:56)
[2024-09-19] MEDS: ONDANSETRON HCL 4 MG/2 ML VIAL IV PRN (20:36)
[2024-09-19 21:00] VITALS: BP 113/51; PULSE 70; RESP 18; TEMP 97.7; O2SAT 93
[2024-09-20] VITALS (8 sets, daily range): BP systolic 120–146; BP diastolic 49–70; PULSE 62–72; RESP 15–18; TEMP 97.8–98.8; O2SAT 91–98
[2024-09-20] MEDS: PANTOPRAZOLE 40 MG/10 ML VIAL INJ IV SCH (09:14)
--- NOTE | 2024-09-20 09:53 | DVHPN2 ---
Progress Note - Dictate Date Seen: Sep 20, 2024 Medical Necessity Reason Pt with a Central, PICC or Fol: No vital signs Vital Sign Date Time Temp Pulse Resp B/P (MAP) Pulse Ox O2 Delivery O2 Flow Rate FiO2 09/20/24 09:15 137/70 09/20/24 09:00 98.4 72 15 91 98.4 09/19/24 20:00 Room Air* 0 21 Total Intake and Output 09/19/24 09/19/24 09/20/24 15:00 23:00 07:00 Intake Total 150 ml 1220 ml 300 ml Output Total 2 ml Balance 150 ml 1218 ml 300 ml medications Current Medications Medications Dose Ordered Sig/Sai Route Start Time Stop Time Status Last Admin Dose Admin Sodium Chloride 1,000 ml @ 75 mls/hr [id number] IV 09/18/24 02:30 09/19/24 18:38 75 MLS/HR Amlodipine Besylate 5 mg DAILY PO 09/18/24 10:00 09/20/24 09:15 5 MG Gabapentin 300 mg HS PO 09/18/24 22:00 09/19/24 22:16 300 MG Ceftriaxone Sodium 50 ml @ 100 mls/hr DAILY@09 IV 09/19/24 09:00 09/20/24 09:14 100 MLS/HR Metronidazole 100 ml @ 100 mls/hr Q8H IV 09/18/24 10:00 09/20/24 01:39 100 MLS/HR Hydralazine HCl 10 mg Q6HP PRN IV 09/18/24 03:15 09/19/24 17:56 10 MG Pantoprazole Sodium 40 mg DAILY@0600 PO 09/18/24 06:00 09/20/24 05:55 40 MG Acetaminophen/ Hydrocodone Bitart 1 tab Q4HPRN PRN PO 09/18/24 13:45 09/19/24 17:55 1 TAB Morphine Sulfate 2 mg Q4HPRN PRN IV 09/18/24 13:45 Ondansetron HCl 4 mg Q4HPRN PRN IV 09/18/24 13:45 09/19/24 20:36 4 MG Sucralfate 1 gm QID@0600,1130,1700,2200 GT 09/19/24 17:00 09/20/24 05:55 1 GM Pantoprazole Sodium 40 mg DAILY IV 09/20/24 10:00 09/20/24 09:14 40 MG objective General Appearance: alert, no distress HEENT: EOMI, PERRLA, normal external inspect of ears, no icterus, no nasal drainage Neck: no carotid bruit, no jugular venous distention (JVD), no lymphadenopathy Chest: normal thorax Respiratory: clear to auscultation, normal air movement Cardiovascular: regular rate and rhythm, no diastolic murmur, no jugular venous distention (JVD), no rub, no systolic murmur Abdominal: soft, no hepatomegaly, no mass, no splenomegaly, no tenderness Genitourinary: grossly normal external Musculoskeletal: no joint tenderness, no swelling Extremities: normal pulses, no calf tenderness, no clubbing, no cyanosis, no edema Skin: no bruising, no jaundice, no rash Neurological: alert, No focal deficit laboratory and microbiology Laboratory Tests 09/18/24 02:30 09/17/24 23:50 Test 09/17/24 23:50 Range/Units Serum Glucose 117 H 74-106 mg/dL Problem List 1. Intractable abdominal pain most likely enteritis vs. gastric ulcer Monitor, GI consult, clear liquid diet 2. GERD Monitor, GI consult, PPI 3. Enteritis Monitor, GI consult, clear liquid diet 4. Hypertensive urgency Monitor, antihypertensives Assessment/Plan Subjective Patient is awake and alert. Objective Patient is Congolese-speaking. Patient was admitted for abdominal pain most likely enteritis versus peptic ulcer disease. CT of abdomen was negative. Chest x-ray had no acute findings. Plan Continue Protonix and Carafate. Discharge planning for tomorrow. Plan discussed with: Patient, Other CASS WHITE NP Sep 20, 2024 09:53
[2024-09-20] MEDS: SUCRALFATE 1 GM/10 ML ORAL SUSP PO SCH (16:14)
--- NOTE | 2024-09-20 20:27 | DVHPN2 ---
Progress Note - Dictate Date Seen: Sep 20, 2024 Medical Necessity Reason Pt with a Central, PICC or Fol: No Subjective Patient seen at bedside resting comfortably Nausea vomiting abdominal pain slightly improved vital signs Vital Sign Date Time Temp Pulse Resp B/P (MAP) Pulse Ox O2 Delivery O2 Flow Rate FiO2 09/20/24 16:46 97.8 64 17 138/68 (91) 95 97.8 09/20/24 08:15 Room Air* 0 21 Total Intake and Output 09/19/24 09/19/24 09/20/24 15:00 23:00 07:00 Intake Total 150 ml 1220 ml 300 ml Output Total 2 ml Balance 150 ml 1218 ml 300 ml medications Current Medications Medications Dose Ordered Sig/Sai Route Start Time Stop Time Status Last Admin Dose Admin Sodium Chloride 1,000 ml @ 75 mls/hr [id number] IV 09/18/24 02:30 09/20/24 10:27 75 MLS/HR Amlodipine Besylate 5 mg DAILY PO 09/18/24 10:00 09/20/24 09:15 5 MG Gabapentin 300 mg HS PO 09/18/24 22:00 09/19/24 22:16 300 MG Ceftriaxone Sodium 50 ml @ 100 mls/hr DAILY@09 IV 09/19/24 09:00 09/20/24 09:14 100 MLS/HR Metronidazole 100 ml @ 100 mls/hr Q8H IV 09/18/24 10:00 09/20/24 18:35 100 MLS/HR Hydralazine HCl 10 mg Q6HP PRN IV 09/18/24 03:15 09/19/24 17:56 10 MG Pantoprazole Sodium 40 mg DAILY@0600 PO 09/18/24 06:00 09/20/24 05:55 40 MG Acetaminophen/ Hydrocodone Bitart 1 tab Q4HPRN PRN PO 09/18/24 13:45 09/19/24 17:55 1 TAB Morphine Sulfate 2 mg Q4HPRN PRN IV 09/18/24 13:45 Ondansetron HCl 4 mg Q4HPRN PRN IV 09/18/24 13:45 09/19/24 20:36 4 MG Pantoprazole Sodium 40 mg DAILY IV 09/20/24 10:00 09/20/24 09:14 40 MG Sucralfate 1 gm QID@0600,1130,1700,2200 PO 09/20/24 17:00 09/20/24 16:14 1 GM objective General: NAD, AAOX3 Chest: lung krishna clear to auscultation Heart: RRR, no murmur Abdomen: + epigastric tenderness to palpation, +BS laboratory and microbiology Laboratory Tests 09/18/24 02:30 09/17/24 23:50 Test 09/17/24 23:50 Range/Units Serum Glucose 117 H 74-106 mg/dL Problems(with codes): (1) N&V (nausea and vomiting) (2) Intractable abdominal pain (3) Small bowel obstruction (4) Abdominal pain Prognosis Plan Patient is currently on IV antibiotics Patient is on IV PPI oral sucralfate and Zofran as needed for nausea Diet has been advanced to full liquid I will follow up patient with you If she continues to be symptomatic I will schedule a possible endoscopy on 09/22/2024 However if the patient is feeling better and she is discharged then I can follow up with her as an outpatient for elective panendoscopy Once again thank you for allowing me to participate in the care of the patient Plan discussed with: Other (Nurse and Niki Prince) BRADY FLORES MD Sep 20, 2024 20:27
[2024-09-21] VITALS (7 sets, daily range): BP systolic 127–154; BP diastolic 60–73; PULSE 64–74; RESP 15–18; TEMP 97.8–98.4; O2SAT 95–99
--- NOTE | 2024-09-21 07:58 | DVHPN2 ---
Progress Note - Dictate Date Seen: Sep 21, 2024 Medical Necessity Reason Pt with a Central, PICC or Fol: No vital signs Vital Sign Date Time Temp Pulse Resp B/P (MAP) Pulse Ox O2 Delivery O2 Flow Rate FiO2 09/21/24 05:00 98.4 73 18 143/73 (96) 96 98.4 09/20/24 20:00 Room Air* 0 21 Total Intake and Output 09/20/24 09/20/24 09/21/24 15:00 23:00 07:00 Intake Total 1150 ml 740 ml 800 ml Balance 1150 ml 740 ml 800 ml medications Current Medications Medications Dose Ordered Sig/Sai Route Start Time Stop Time Status Last Admin Dose Admin Sodium Chloride 1,000 ml @ 75 mls/hr [id number] IV 09/18/24 02:30 09/21/24 01:57 75 MLS/HR Amlodipine Besylate 5 mg DAILY PO 09/18/24 10:00 09/20/24 09:15 5 MG Gabapentin 300 mg HS PO 09/18/24 22:00 09/20/24 21:47 300 MG Ceftriaxone Sodium 50 ml @ 100 mls/hr DAILY@09 IV 09/19/24 09:00 09/20/24 09:14 100 MLS/HR Metronidazole 100 ml @ 100 mls/hr Q8H IV 09/18/24 10:00 09/21/24 01:53 100 MLS/HR Hydralazine HCl 10 mg Q6HP PRN IV 09/18/24 03:15 09/19/24 17:56 10 MG Pantoprazole Sodium 40 mg DAILY@0600 PO 09/18/24 06:00 09/21/24 05:59 40 MG Acetaminophen/ Hydrocodone Bitart 1 tab Q4HPRN PRN PO 09/18/24 13:45 09/19/24 17:55 1 TAB Morphine Sulfate 2 mg Q4HPRN PRN IV 09/18/24 13:45 Ondansetron HCl 4 mg Q4HPRN PRN IV 09/18/24 13:45 09/19/24 20:36 4 MG Pantoprazole Sodium 40 mg DAILY IV 09/20/24 10:00 09/20/24 09:14 40 MG Sucralfate 1 gm QID@0600,1130,1700,2200 PO 09/20/24 17:00 09/21/24 05:59 1 GM objective General Appearance: alert, no distress HEENT: EOMI, PERRLA, normal external inspect of ears, no icterus, no nasal drainage Neck: no carotid bruit, no jugular venous distention (JVD), no lymphadenopathy Chest: normal thorax Respiratory: clear to auscultation, normal air movement Cardiovascular: regular rate and rhythm, no diastolic murmur, no jugular venous distention (JVD), no rub, no systolic murmur Abdominal: soft, no hepatomegaly, no mass, no splenomegaly, no tenderness Genitourinary: grossly normal external Musculoskeletal: no joint tenderness, no swelling Extremities: normal pulses, no calf tenderness, no clubbing, no cyanosis, no edema Skin: no bruising, no jaundice, no rash Neurological: alert, No focal deficit laboratory and microbiology Laboratory Tests 09/18/24 02:30 09/17/24 23:50 Test 09/17/24 23:50 Range/Units Serum Glucose 117 H 74-106 mg/dL Problem List 1. Intractable abdominal pain most likely enteritis vs. gastric ulcer Monitor, GI consult, clear liquid diet 2. GERD Monitor, GI consult, PPI 3. Enteritis Monitor, GI consult, clear liquid diet 4. Hypertensive urgency Monitor, antihypertensives Assessment/Plan Subjective: Patient is awake and alert. Objective: I spoke with the patient's daughter, who translated at the bedside. Patient was admitted for intractable abdominal pain related to possible gastritis, enteritis, vs peptic ulcer disease. Patient was started on Protonix and Carafate. Patient was seen by GI. Plan: Continue antibiotics with Rocephin and Flagyl. Continue Protonix and Carafate. Continue IV fluids. GI recommendations appreciated. Plan discussed with: Patient, Other CASS WHITE NP Sep 21, 2024 07:58
--- NOTE | 2024-09-21 12:12 | DVH ---
ABDOMINAL RADIOGRAPH Indication: abd pain Technique: Single frontal view of the abdomen was obtained Comparison: None FINDINGS: Lines and tubes: There are surgical clips in the right upper quadrant and the right lower abdomen r ight of midline. There is a nonobstructive bowel gas pattern. No supine radiographic evidence of pneumoperitoneum. Bon y structures unremarkable. IMPRESSION: 1. Nonobstructive bowel gas pattern.
--- NOTE | 2024-09-21 12:41 | DVHPN2 ---
Progress Note - Dictate Date Seen: Sep 21, 2024 Medical Necessity Reason Pt with a Central, PICC or Fol: No Subjective No new complaints Patient currently on a full liquid diet vital signs Vital Sign Date Time Temp Pulse Resp B/P (MAP) Pulse Ox O2 Delivery O2 Flow Rate FiO2 09/21/24 12:35 98.0 74 16 149/70 (96) 97 98.0 09/21/24 08:05 Room Air* 0 21 Total Intake and Output 09/20/24 09/20/24 09/21/24 15:00 23:00 07:00 Intake Total 1150 ml 740 ml 800 ml Balance 1150 ml 740 ml 800 ml medications Current Medications Medications Dose Ordered Sig/Sai Route Start Time Stop Time Status Last Admin Dose Admin Sodium Chloride 1,000 ml @ 75 mls/hr [id number] IV 09/18/24 02:30 09/21/24 01:57 75 MLS/HR Amlodipine Besylate 5 mg DAILY PO 09/18/24 10:00 09/21/24 08:49 5 MG Gabapentin 300 mg HS PO 09/18/24 22:00 09/20/24 21:47 300 MG Ceftriaxone Sodium 50 ml @ 100 mls/hr DAILY@09 IV 09/19/24 09:00 09/21/24 08:48 100 MLS/HR Metronidazole 100 ml @ 100 mls/hr Q8H IV 09/18/24 10:00 09/21/24 10:00 100 MLS/HR Hydralazine HCl 10 mg Q6HP PRN IV 09/18/24 03:15 09/19/24 17:56 10 MG Pantoprazole Sodium 40 mg DAILY@0600 PO 09/18/24 06:00 09/21/24 05:59 40 MG Acetaminophen/ Hydrocodone Bitart 1 tab Q4HPRN PRN PO 09/18/24 13:45 09/19/24 17:55 1 TAB Morphine Sulfate 2 mg Q4HPRN PRN IV 09/18/24 13:45 Ondansetron HCl 4 mg Q4HPRN PRN IV 09/18/24 13:45 09/19/24 20:36 4 MG Pantoprazole Sodium 40 mg DAILY IV 09/20/24 10:00 09/21/24 08:48 40 MG Sucralfate 1 gm QID@0600,1130,1700,2200 PO 09/20/24 17:00 09/21/24 05:59 1 GM objective General: NAD, AAOX3 Chest: lung krishna clear to auscultation Heart: RRR, no murmur Abdomen: + epigastric tenderness to palpation, +BS laboratory and microbiology Laboratory Tests 09/18/24 02:30 09/17/24 23:50 Test 09/17/24 23:50 Range/Units Serum Glucose 117 H 74-106 mg/dL CHEST ABD PELVIC XRAY Nonobstructive bowel gas pattern Stool for WBC negative Stool for bacterial culture negative Problems(with codes): (1) Small bowel obstruction (2) N&V (nausea and vomiting) (3) Intractable abdominal pain (4) Abnormal finding on GI tract imaging Prognosis Plan I will schedule him for an endoscopy on 09/22/2024 NPO after midnight Continue Protonix and Carafate and full liquid diet today as tolerated Zofran as needed for nausea and vomiting Plan discussed with: Other (Nurse) BRADY FLORES MD Sep 21, 2024 12:41
[2024-09-22] VITALS (8 sets, daily range): BP systolic 117–145; BP diastolic 61–80; PULSE 62–82; RESP 16–20; TEMP 97.5–98.3; O2SAT 94–99
[2024-09-22] MEDS ORDERED: SODIUM CHLORIDE LOCK 10 ML ONE (08:10)
[2024-09-22] MEDS: LIDOCAINE VISCOUS 2% 15ML UD ONE (09:18)
[2024-09-22] MEDS: fentaNYL CITRATE 100 MCG/2 ML VL ONE (09:21)
[2024-09-22] MEDS: MIDAZOLAM HCL 5 MG/ML-1ML VIAL ONE (09:21)
[2024-09-22] MEDS: diphenhdrAMINE HCL 50 MG/1 ML VL ONE (09:21)
--- NOTE | 2024-09-22 09:56 | DVHOP2 ---
Operative Report DATE OF OPERATION: 09/22/24 PROCEDURE: Upper Endoscopy with biopsy. PREOPERATIVE INDICATION: The patient is a 73 -year-old female undergoing endoscopy for nausea and vomiting epigastric pain POSTOPERATIVE DIAGNOSES: 1. 1 cm sliding-type hiatal hernia with minimal grade a erosive esophagitis 2. Mild gastritis with hyperemia erythema involving the antrum and body of the stomach 3. Otherwise normal examination up to the 2nd and 3rd part of the duodenum PROCEDURE PERFORMED BY: Brady Reyes GI NURSE: Ruby SCOPE: Olympus videoendoscope. ASA CLASS: 2. PREOPERATIVE MEDICATIONS: Versed 2 mg, Fentanyl 25 mcg, Benadryl 25 mg I administered moderate sedation throughout this _9_ minutes procedure. An independent trained observer pushed medications at my direction, and monitored the patient's level of consciousness and physiological status throughout. PROCEDURE IN DETAIL: After obtaining an informed consent, the patient was placed on left lateral decubitus position. The patient was then sedated with the above medications. A bite block was placed between her teeth. The endoscope was then passed through the oropharynx, into the esophagus, and through the stomach and pylorus up to the second and third part of the duodenum. The endoscope was then withdrawn. The 2nd and 3rd part of the duodenum and the duodenal bulb were normal. Duodenal biopsies were obtained The pre-pyloric area antrum and body showed mild gastritis with some hyperemia erythema. Gastric biopsies were obtained. On retroflexion the fundus cardia and angularis were normal. The endoscope was then withdrawn into the distal esophagus. Patient had a 1- 2 cm sliding-type hiatal hernia with slightly irregular squamocolumnar junction minimal grade a erosive esophagitis. GE junction biopsies were obtained. The remaining distal and proximal esophagus and oropharynx were unremarkable The patient tolerated the procedure well without difficulty. COMPLICATIONS : None SPECIMENS: Duodenal biopsies Gastric biopsies GE junction biopsies DISPOSITION: Transfer back to the floor Stable PLAN: 1. Await for biopsy result 2. Will place pt on Protonix 40 mg bid 3. Carafate 1 g p.o. twice a day 4. Soft mechanical diet and advance as tolerated 5. Patient will be advised a screening colonoscopy possibly as an outpatient BRADY REYES MD Sep 22, 2024 09:56
[2024-09-22] MEDS ORDERED: SUCR1TAB31 PO (11:41)
[2024-09-22] MEDS ORDERED: PANT40TA2 PO (11:41)
--- NOTE | 2024-09-22 11:42 | DVHDS2 ---
Discharge Summary Date of Admission Sep 18, 2024 at 02:14 Date of Discharge: Sep 22, 2024 Labs/Diagnostic Data: Laboratory Results Test 09/20/24 11:00 09/18/24 06:15 09/18/24 02:30 09/18/24 00:49 Stool for White Cells None seen Influenza Type A Antigen Negative (Negative) Influenza Type B Antigen Negative (Negative) SARS-CoV-2 Antigen (Rapid) Negative (NEGATIVE) White Blood Count 12.8 10^3/uL (4.4-10.8) Red Blood Count 4.38 10^6/uL (4.0-5.20) Hemoglobin 13.5 g/dL (12.2-16.2) Hematocrit 41.3 % (36.0-46.0) Mean Corpuscular Volume 94.4 fL (80.0-100.0) Mean Corpuscular Hemoglobin 30.7 pg (28.0-32.0) Mean Corpuscular Hemoglobin Concent 32.6 g/dL (32.0-36.0) Red Cell Distribution Width 14.6 % (11.8-14.3) Platelet Count 338 10^3/uL (140-450) Mean Platelet Volume 8.1 fL (6.9-10.8) Neutrophils (%) (Auto) 68.8 % (37.0-80.0) Lymphocytes (%) (Auto) 20.0 % (10.0-50.0) Monocytes (%) (Auto) 8.9 % (0.0-12.0) Eosinophils (%) (Auto) 1.4 % (0.0-7.0) Basophils (%) (Auto) 0.9 % (0.0-2.0) Neutrophils # (Auto) 8.8 10 ^3/uL (1.6-8.6) Lymphocytes # (Auto) 2.6 10 ^3/uL (0.4-5.4) Monocytes # (Auto) 1.1 10 ^3/uL (0-1.3) Eosinophils # (Auto) 0.2 10 ^3/uL (0-0.8) Basophils # (Auto) 0.1 10 ^3/uL (0-0.2) Nucleated Red Blood Cells 0.1 % Hemoglobin A1c 6.0 % A1C (<5.7) Thyroid Stimulating Hormone (TSH) 2.57 uIU/mL (0.55-4.78) Hepatitis B Surface Antigen Negative (Negative) Hepatitis C Antibody Negative (Negative) Troponin I High Sensitivity 3 ng/L (</=34) Test 09/18/24 00:00 09/17/24 23:50 Urine Color Straw (Yellow) Urine Clarity Clear (Clear) Urine pH 7.0 (5.0-9.0) Urine Specific [place] 1.011 (1.001-1.035) Urine Protein Negative (Negative) Urine Ketones Negative (Negative) Urine Blood Negative /uL (Negative) Urine Nitrite Negative (Negative) Urine Bilirubin Negative (Negative) Urine Urobilinogen Normal mg/dL (Negative) Urine Leukocyte Esterase Negative /uL (Negative) Urine RBC 1 /hpf (0 - 4) Urine WBC <1 /hpf (0 - 5) Urine Squamous Epithelial Cells Few /hpf (<5) Urine Bacteria None seen /hpf (None Seen) Urine Glucose Normal mg/dL (Normal) Sodium Level 141 mmol/L (136-145) Potassium Level 4.1 mmol/L (3.5-5.1) Chloride Level 107 mmol/L (98-107) Carbon Dioxide Level 28 mmol/L (20-31) Anion Gap 6 (5-15) Blood Urea Nitrogen 15 mg/dL (9-23) Creatinine 0.79 mg/dL (0.550-1.02) Glomerular Filtration Rate Calc 78 mL/min (>90) BUN/Creatinine Ratio 19.0 (10.0-20.0) Serum Glucose 117 mg/dL (74-106) Lactic Acid Level 1.2 mmol/L (0.4-2.0) Calcium Level 10.1 mg/dL (8.7-10.4) Total Bilirubin 0.5 mg/dL (0.2-1.0) Aspartate Amino Transferase (AST) 14 U/L (13-40) Alanine Aminotransferase (ALT) 19 U/L (7-40) Alkaline Phosphatase 111 U/L (46-116) Total Protein 7.2 g/dL (5.7-8.2) Albumin 4.4 g/dL (3.2-4.8) Lipase 38 U/L (12-53) Other Laboratory Tests 09/18/24 02:30 09/17/24 23:50 Brief Hx & Hospital Course: This is a 73-year-old female with past medical history of hypertension, GERD, arthritis, prediabetes presented to the ED with a chief complaint of intractable abdominal pain and vomiting since morning prior to this admission. Patient stated that she has experiencing abdominal pain which was since morning which was sharp stabbing pain, constant localized, 10/10 and associated with 1 episodes of vomiting. The patient denies headache, chills, fever, malaise, dizziness, diaphoresis, chest pain, nausea, dysuria, hematuria or any change in the bowel movement. Patient was admitted for intractable abdominal pain. Patient describes the pain as severe and occurring when she eats. Patient was seen by gastroenterology. Upper endoscopy was done. Patient was found to have mild gastritis. Patient was discharged home on oral Protonix and Carafate. She was able to tolerate a soft regular diet and she will follow-up with her PCP in 1 week. She will follow-up outpatient with GI for elective outpatient colonoscopy. The patient received proper medical treatment and medications. Vital signs, Imaging and Laboratory Work was monitored daily. All consults recommendations were followed as provided. There were no complaints or new complaints upon discharge, all questions and concerns were answered. Patient was advised to return to the ER or call 911 if any headaches, dizziness, shortness of breath, chest pain, bleeding, fevers, or worsening of medical condition. Patient/Family was counseled about treatment plan, medications, possible side effects, patient verbalized understanding. All questions were answered to the best of my ability. The patient symptoms improved and they are okay to be DC. Condition at Discharge: Stable Final Diagnosis/Problems List GASTRITIS Discharge Disposition: Home Discharge Instruct/Medications Diet: Cardiac 2g Na,low cholest Activity: No Restrictions, As Tolerated Follow Up/Referral: OUTPT FOLLOW UP GI FOR COLONOSCOPY PCP 1 WEEK Discharge Statement: "Patient was advised to return to the ER or call 911 if any headaches, dizziness, shortness of breath, chest pain, abdominal pain, bleeding, fevers, or worsening of medical condition. Patient was counseled about treatment plan, medications, possible side effects, patientverbalized understanding. All questions were answered to the best of my ability. This discharge took greater then 30 minutes in planning, reviewing documentation, counseling the patient, and discussing with other team members." ASSESSMENT ASSESSMENT Assessment GASTRITIS CASS WHITE NP Sep 22, 2024 11:42
--- NOTE | 2024-09-24 14:18 | ECG ---
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
== END 2024-09-22 15:40 | disposition home or self-care (01) | DRG 392 ==
LOC: ER 23:24 → OVERFLOW 09-18 02:14 → EAST 09-18 06:20
PROVIDERS: ATTEND Nurse Practitioner
PROC: 0DB68ZX Excision of Stomach, Via Natural or Artificial Opening Endoscopic, Diagnostic (ICD-10-PCS; 2024-09-22)
PROC: 0DB48ZX Excision of Esophagogastric Junction, Via Natural or Artificial Opening Endoscopic, Diagnostic (ICD-10-PCS; 2024-09-22)
PROC: 0DB98ZX Excision of Duodenum, Via Natural or Artificial Opening Endoscopic, Diagnostic (ICD-10-PCS; principal; 2024-09-22 09:10)
DX: K29.70 Gastritis, unspecified, without bleeding (principal); K22.10 Ulcer of esophagus without bleeding; K21.9 Gastro-esophageal reflux disease without esophagitis; I10 Essential (primary) hypertension; R73.03 Prediabetes; K44.9 Diaphragmatic hernia without obstruction or gangrene; I16.0 Hypertensive urgency; Z90.710 Acquired absence of both cervix and uterus; Z85.42 Personal history of malignant neoplasm of other parts of uterus; Z79.1 Long term (current) use of non-steroidal anti-inflammatories (NSAID); Z79.899 Other long term (current) drug therapy; Z79.84 Long term (current) use of oral hypoglycemic drugs
CPT/HCPCS: 36415; 43239; 71045; 74018; 74177; 80053; 81001; 83036; 83605; 83690; 84443; 84484; 85025; 85048; 86803; 86850; 86900; 86901; 87040; 87045; 87340; 87426; 87427; 87804; 93005; 96361; 96365; 96367; 96375; 99291; G0378; J2250; J2405; J2470; J3490

== ENCOUNTER → 2024-11-26 | Outpatient (CLI) | payer OTHER ==
[~2024-11-26] MED LIST changes: -BACL20TA PO; -GABA-1250 PO; -IBUP1TAB5 PO; -METF-370 PO; -OMEP20CA74 PO; +PANT40TA2 PO; -PRED20TA2 PO; +SUCR1TAB31 PO
[2024-11-26 09:33] LABS: Urine Bacteria None Seen /hpf (None Seen)
[2024-11-26 09:48] LABS: Urine Blood Negative /uL (Negative); Urine Clarity Clear (Clear); Urine Color Light-Yellow (Yellow); Urine Mucus FEW (None Seen); Urine Protein, UAD Negative (Negative); Urine Specific Gravity 1.014 (1.001-1.035); Urine Squamous Epithelial Cell FEW /hpf (<5); Urine Urobilinogen Normal (Negative); Urine WBC 1 /HPF (0-5)
[2024-11-26 09:57] LABS: Basophils # (auto) 0.1 10 ^3/uL (0-0.2); Eosinophils # (auto) 0.2 10 ^3/uL (0-0.8); Eosinophils % (auto) 2.7 % (0.0-7.0); Hematocrit 42.7 % (36.0-46.0); Hemoglobin 14.4 g/dL (12.2-16.2); Lymphocytes # (auto) 1.9 10 ^3/uL (0.4-5.4); Lymphocytes % (auto) 27.3 % (10.0-50.0); Mean Corpuscular Hemoglobin 31.1 pg (28.0-32.0); Mean Corpuscular Hgb Conc. 33.9 g/dL (32.0-36.0); Mean Corpuscular Volume 91.8 fL (80.0-100.0); Monocytes # (auto) 0.6 10 ^3/uL (0-1.3); Monocytes % (auto) 8.8 % (0.0-12.0); Neutrophils # (auto) 4.3 10 ^3/uL (1.6-8.6); Neutrophils % (auto) 60.2 % (37.0-80.0); Nucleated Red Blood Cells % 0.1 %; Platelet Count (auto) 370 10^3/uL (140-450); Red Blood Cells 4.65 10^6/uL (4.0-5.20); Red Cell Distribution Width 14.5 % (11.8-14.3); White Blood Cell 7.1 10^3/uL (4.4-10.8)
[2024-11-26 10:29] LABS: Alanine Aminotransferase 18 U/L (7-40); Albumin 4.5 g/dL (3.2-4.8); Alkaline Phosphatase 108 U/L (46-116); Anion Gap 7 (5-15); Aspartate Aminotransferase 20 U/L (13-40); BUN/Creatinine Ratio 16.7 (10.0-20.0); Bilirubin, Total 0.4 mg/dL (0.2-1.0); Blood Urea Nitrogen 12 mg/dL (9-23); Calcium 9.7 mg/dL (8.7-10.4); Carbon Dioxide 29 mmol/L (20-31); Cholesterol 166 mg/dL (< 200); Glucose 105 mg/dL (74-106); HDL Cholesterol 47 mg/dL (40-59); LDL Cholesterol 86 mg/dL (< 100); Sodium 144 mmol/L (136-145); Total Protein 7.2 g/dL (5.7-8.2)
[2024-11-26 10:30] LABS: Chloride 108 mmol/L (98-107); Triglycerides 224 mg/dL (< 150)
[2024-11-26 10:47] LABS: Uric Acid 4.6 mg/dL (3.1-7.8)
== END | disposition home or self-care (01) ==
LOC: LAB 09:19
PROVIDERS: ATTEND Family Medicine
DX: Z12.11 Encounter for screening for malignant neoplasm of colon (principal); I10 Essential (primary) hypertension; K21.9 Gastro-esophageal reflux disease without esophagitis; M81.0 Age-related osteoporosis without current pathological fracture; E88.818 Other insulin resistance; Z87.19 Personal history of other diseases of the digestive system
CPT/HCPCS: 36415; 80053; 80061; 81001; 82306; 83036; 84443; 84550; 85025

== ENCOUNTER 2024-12-19 21:03 | Emergency (ER) | payer MEDICAID ==
[~2024-12-19] VITALS: Ht 142.2 cm; Wt 59.4 kg
--- NOTE | 2024-12-19 21:22 | ED.PDOC ---
GI ASSESSMENT HPI Comments 73-year-old female with PMHx Arthritis, GERD, HTN presents with a chief complaint of abdominal pain x 2 hours. Patient states that her abdominal pain is localized diffusely, nonradiating, describes as aching, and rates her pain a 8/10. Patient denies any vomiting, diarrhea, or rectal bleeding. Patient confirms intermittent nausea. Patient mentions that she has a history of hernia repairs on her abdomen. Patient denies any injuries or trauma prior to onset of symptoms. No other symptoms or modifying factors present at this time. Time Seen by MD: 21:14 Primary Care Provider: NONE Reviewed Notes: Nurses Notes, Medications, Allergies Allergies: Coded Allergies: NO KNOWN ALLERGIES (Unverified , 05/27/14) Home Meds Active Scripts Sucralfate (CARAFATE) 1 Gm Tab, 1 GM PO BID for 30 Days, #60 TAB Prov:CASS WHITE NP 09/22/24 Pantoprazole Sodium Sesquihydr (Protonix) 40 Mg Tab, 40 MG PO BID, #60 TAB Prov:CASS WHITE NP 09/22/24 Reported Medications Omeprazole (Omeprazole Dr) 40 Mg Cap, 40 MG PO DAILY, CAP 09/19/24 Calcium Ascorbate (Vitamin C) 500 Mg Tab, 500 MG PO DAILY, TAB 06/14/23 Amlodipine Besylate (Amlodipine Besylate) 5 Mg Tab, 5 MG PO DAILY for 30 Days, MG 05/28/14 Information Source: Patient Mode of Arrival: Ambulatory Timing: Hours Duration: Since onset Prehospital treatment: None Quality: Aching Vomitus: None Stool: Normal Severity: Moderate Recent: None Recent Hx of: None Pain Location: Diffuse Associated sign and symptoms: Nausea, Abdominal Pain Past Medical History PAST MEDICAL HISTORY: Arthritis, GERD, HTN Surgical History: Appendectomy, Hernia Repair, Hysterectomy PIT SLAGMAN History: Denies all PIT SLAGMAN Hx, Other Family History Family History: Reviewed,noncontributory to illness Social History Smoker: Non-Smoker Alcohol: Denies ETOH Use Drugs: Denies Drug Use Lives In: Home Constitutional: denies: chills, diaphoresis, fatigue, fever, malaise, sweats, weakness, others EENTM: denies: blurred vision, double vision, ear bleeding, ear discharge, ear drainage, ear pain, ear ringing, eye pain, eye redness, hearing loss, mouth pain, mouth swelling, nasal discharge, nose bleeding, nose congestion, nose p ain, photophobia, tearing, throat pain, throat swelling, voice changes, others Respiratory: denies: cough, hemoptysis, orthopnea, SOB at rest, shortness of breath, SOB with excertion, stridor, wheezing, others Cardiovascular: denies: chest pain, dizzy spells, diaphoresis, Dyspnea on exertion, edema, irregular heart beat, left arm pain, lightheadedness, palpitations, PND, syncope, others Gastrointestinal: reports: abdominal pain, nausea; denies: abdomen distended, blood streaked bowels, constipated, diarrhea, dysphagia, difficulty swallowing, hematemesis, melena, poor appetite, poor fluid intake, rectal bleeding, rectal pain, vomiting, others Genitourinary: denies: abnormal vagina bleeding, burning, dyspareunia, dysuria, flank pain, frequency, hematuria, incontinence, pain, , vagina discharge, urgency, others Neurological: denies: dizziness, fainting, headache, left sided numbness, left sided weakness, numbness, paresthesia, pre-existing deficit, right sided numbness, right sided weakness, seizure, speech problems, tingling, tremors, weakness, others Musculoskeletal: denies: back pain, gout, joint pain, joint swelling, muscle pain, muscle stiffness, neck pain, others Integumetry: denies: bruises, change in color, change in hair/nails, dryness, laceration, lesions, lumps, rash, wounds, others Allergic/Immunocompromised: denies: Difficulty Healing, Frequent Infections, Hives, Itching, others Hematologic/Lymphatic: denies: anemia, blood clots, easy bleeding, easy bruising, swollen glands, others Endocrine: denies: excessive hunger, excessive sweating, excessive thirst, excessive urination, flushing, intolerance to cold, intolerance to heat, unexplained weight gain, unexplained weight loss, others Psychiatric: denies: anxiety, bipolar disorder, depression, hopeless, panic disorder, schizophrenia, sleepless, suicidal, others All Other Systems: Reviewed and Negative Physical Exam General Appearance: Moderate Distress ([id number] distress due to abdominal pain concerns.), Normal HEENT: Normal ENT Inspection, Pharynx Normal, TMs Normal Neck: Full Range of Motion, Non-Tender, Normal, Normal Inspection Respiratory: Chest Non-Tender, Lungs Clear, No Accessory Muscle Use, No Respiratory Distress, Normal Breath Sounds Cardiovascular: No Edema, No JVD, No Murmur, No Gallop, Normal Peripheral Pulses, Regular Rate/Rhythm Breast Exam: Deferred Gastrointestinal: Other ( Diffuse abdominal pain extending from the epigastric region towards the periumbilical region. No signs of trauma. Abdomen was reasonably soft. No pulsatile masses.) Genitalia: Deferred Pelvic: Deferred Rectal: Deferred Extremities: No calf tenderness, Normal capillary refill, Normal inspection, Normal range of motion, Non-tender, No pedal edema Neurologic: Alert, No Motor Deficits, Normal Affect, Normal Mood, No Sensory Deficits Cerebellar Function: Normal Reflexes: Normal Skin: Dry, Normal Color, Warm Lymphatic: No Adenopathy Was a procedure done? Was a procedure done?: No GI differential Dx Differential Diagnosis: Bowel Obstruction, Cholangitis, Cholecystitis, Constipation, Gastritis/PUD, Gastroenteritis, Pancreatitis, UTI, Other X-Ray, Labs, Meds, VS Vital Signs Date Time Temp Pulse Resp B/P (MAP) Pulse Ox O2 Delivery O2 Flow Rate FiO2 12/19/24 22:03 74 19 95 Room Air 12/19/24 22:03 97.6 74 19 162/83 (109) 95 97.6 12/19/24 21:30 70 12/19/24 21:24 97.6 79 16 168/75 (106) 96 97.6 Lab Test 12/19/24 23:08 12/19/24 21:35 12/19/24 21:26 Range/Units Troponin I High Sensitivity 4 3 L </=34 ng/L White Blood Count 8.8 4.4-10.8 10^3/uL Red Blood Count 4.69 4.0-5.20 10^6/uL Hemoglobin 15.0 12.2-16.2 g/dL Hematocrit 43.1 36.0-46.0 % Mean Corpuscular Volume 91.9 80.0-100.0 fL Mean Corpuscular Hemoglobin 32.0 28.0-32.0 pg Mean Corpuscular Hemoglobin Concent 34.8 32.0-36.0 g/dL Red Cell Distribution Width 14.6 H 11.8-14.3 % Platelet Count 364 140-450 10^3/uL Mean Platelet Volume 7.8 6.9-10.8 fL Neutrophils (%) (Auto) 59.4 37.0-80.0 % Lymphocytes (%) (Auto) 27.1 10.0-50.0 % Monocytes (%) (Auto) 9.5 0.0-12.0 % Eosinophils (%) (Auto) 3.3 0.0-7.0 % Basophils (%) (Auto) 0.7 0.0-2.0 % Neutrophils # (Auto) 5.2 1.6-8.6 10 ^3/uL Lymphocytes # (Auto) 2.4 0.4-5.4 10 ^3/uL Monocytes # (Auto) 0.8 0-1.3 10 ^3/uL Eosinophils # (Auto) 0.3 0-0.8 10 ^3/uL Basophils # (Auto) 0.1 0-0.2 10 ^3/uL Nucleated Red Blood Cells 0.1 % Sodium Level 141 136-145 mmol/L Potassium Level 4.0 3.5-5.1 mmol/L Chloride Level 107 98-107 mmol/L Carbon Dioxide Level 26 20-31 mmol/L Anion Gap 8 5-15 Blood Urea Nitrogen 14 9-23 mg/dL Creatinine 0.70 0.550-1.02 mg/dL Glomerular Filtration Rate Calc 90 >90 mL/min BUN/Creatinine Ratio 20.0 10.0-20.0 Serum Glucose 102 74-106 mg/dL Lactic Acid Level 1.5 0.4-2.0 mmol/L Calcium Level 10.0 8.7-10.4 mg/dL Total Bilirubin 0.4 0.2-1.0 mg/dL Aspartate Amino Transferase (AST) 19 13-40 U/L Alanine Aminotransferase (ALT) 20 7-40 U/L Alkaline Phosphatase 113 46-116 U/L Total Protein 7.6 5.7-8.2 g/dL Albumin 4.7 3.2-4.8 g/dL Lipase 37 12-53 U/L Urine Color Colorless Yellow Urine Clarity Clear Clear Urine pH 6.0 5.0-9.0 Urine Specific [place] 1.005 1.001-1.035 Urine Protein Negative Negative Urine Ketones Negative Negative Urine Blood Negative Negative /uL Urine Nitrite Negative Negative Urine Bilirubin Negative Negative Urine Urobilinogen Normal Negative mg/dL Urine Leukocyte Esterase Trace Negative /uL Urine RBC None seen 0 - 4 /hpf Urine Microscopic WBC 1 0-5 /HPF Urine Squamous Epithelial Cells Few <5 /hpf Urine Bacteria None seen None Seen /hpf Urine Glucose Normal Normal mg/dL Current Medications Medications (Trade) Dose Ordered Sig/Sai Route Start Time Stop Time Status Last Admin Dicyclomine HCl (Bentyl Injection) 20 mg ONCE ONCE IM 12/19/24 21:30 12/19/24 21:31 DC 12/19/24 21:55 Ondansetron HCl (Zofran Po) 4 mg ONCE ONCE PO 12/19/24 21:30 12/19/24 21:31 DC 12/19/24 21:55 X-Ray, Labs, Meds, VS Comment All studies performed the ED were evaluated by me personally. Serum and urinalysis were all unremarkable for any acute systemic process. CT of the abdomen and pelvis was unremarkable for any acute intra-abdominal or pelvic finding. Patient appears to be suffering from a gastritis event. Patient responded well to medication. Advised patient utilize medication as needed for symptomatic relief as well as good hydration and healthy nutrition throughout illness event. Time of 1ST Reevaluation: Reevaluation 1ST: Improved Consultation: PCP Patient Education/Counseling: Diagnosis, Treatment, Prognosis Family Education/Counseling: Diagnosis, Treatment, No Family Present Departure 1 Departure Time of Disposition: Impression: Primary Impression: Gastroenteritis Disposition: HOME / SELF CARE / HOMELESS Condition: Stable Additional Instructions: Advise utilizing medication as needed for symptomatic relief as well as good hydration and healthy nutrition throughout illness event. e-Prescriptions Ondansetron Odt 4MG Tab (ZOFRAN PO) 4 Mg Tb 4 MG PO Q6HP PRN, #15 TAB ODT TAB-DISSOLVE IN MOUTH, THEN SWALLOW Prov: ISAÍAS WEST PAC 12/20/24 Dicyclomine Hcl (BENTYL CAPSULE) 10 Mg Cp 1 CAP PO Q6HP PRN, #20 CAP 0 Refills Prov: ISAÍAS WEST PAC 12/20/24 Discharged With: Self, Friend Critical Care Note Critical Care Time?: No Stability Stability form required: No Heart Score Heart Score: Heart Score Response (Comments) Value History N/A 0 EKG N/A 0 Age N/A 0 Risk Factors N/A 0 Troponin N/A 0 Total 0 I personally scribed for FELICIA GOLDMAN DO ([email or web address]) on 12/19/24 at 21:22. Electronically submitted by Wilfredo Soriano ([email or web address]). FELICIA GOLDMAN DO Dec 19, 2024 21:22 ISAÍAS WEST Dec 20, 2024 01:29
--- NOTE | 2024-12-19 21:32 | ECG ---
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
[2024-12-19 21:52] LABS: Basophils # (auto) 0.1 10 ^3/uL (0-0.2); Basophils % (auto) 0.7 % (0.0-2.0); Eosinophils # (auto) 0.3 10 ^3/uL (0-0.8); Eosinophils % (auto) 3.3 % (0.0-7.0); Hematocrit 43.1 % (36.0-46.0); Lymphocytes # (auto) 2.4 10 ^3/uL (0.4-5.4); Lymphocytes % (auto) 27.1 % (10.0-50.0); Mean Corpuscular Hgb Conc. 34.8 g/dL (32.0-36.0); Mean Corpuscular Volume 91.9 fL (80.0-100.0); Monocytes # (auto) 0.8 10 ^3/uL (0-1.3); Monocytes % (auto) 9.5 % (0.0-12.0); Neutrophils # (auto) 5.2 10 ^3/uL (1.6-8.6); Neutrophils % (auto) 59.4 % (37.0-80.0); Nucleated Red Blood Cells % 0.1 %; Platelet Count (auto) 364 10^3/uL (140-450); Red Blood Cells 4.69 10^6/uL (4.0-5.20); Red Cell Distribution Width 14.6 % (11.8-14.3); White Blood Cell 8.8 10^3/uL (4.4-10.8)
[2024-12-19] MEDS: DICYCLOMINE HCL (10MG/ML) 2 ML AMPULE IM ONE (21:55)
[2024-12-19] MEDS: ONDANSETRON ODT 4 MG TAB PO ONE (21:55)
[2024-12-19 22:04] LABS: Alanine Aminotransferase 20 U/L (7-40); Albumin 4.7 g/dL (3.2-4.8); Alkaline Phosphatase 113 U/L (46-116); Anion Gap 8 (5-15); Aspartate Aminotransferase 19 U/L (13-40); Blood Urea Nitrogen 14 mg/dL (9-23); Carbon Dioxide 26 mmol/L (20-31); Glucose 102 mg/dL (74-106); Lipase 37 U/L (12-53); Sodium 141 mmol/L (136-145); Total Protein 7.6 g/dL (5.7-8.2)
[2024-12-19 22:05] LABS: Urine Bacteria None Seen /hpf (None Seen)
[2024-12-19 22:05] LABS: Bilirubin, Total 0.4 mg/dL (0.2-1.0)
[2024-12-19 22:06] LABS: Chloride 107 mmol/L (98-107)
--- NOTE | 2024-12-19 22:15 | DVH ---
Exam: CT PEL WO CON-NO ORAL OR IV History: Diffuse abdominal pain Comparison Study: None Contrast: None TECHNIQUE: Multidetector CT of abdomen and pelvis without IV contrast. Radiation Dose Information: CT Dose: CTDI volume is 6.5 mGy. Dose-length product is 363.23 mGy*cm FINDINGS: lung bases are clear. Calcifications in the coronary arteries and in the aortic valve heart size is n ormal there is a small hiatal hernia. Pancreas is atrophied. Patient has had a cholecystectomy. The adrenals and kidneys are unremarkable. Patient has multiple surgical clips along the anterior rig ht psoas muscle. Patient has a densely calcified abdominal aorta densely calcified common iliacs and internal iliacs Bladder is unremarkable. There is no inguinal hernia. No gastrointestinal obstruction. Stool burden is unremarkable. There rear disc disease L4-5 and L5-S1 vertebral body heights are well preserved there is a slight an terior listhesis of L4 upon L5 no definite pars fracture patient May have anterior wall adhesions pro bably from prior surgery no evidence for gastrointestinal obstruction. IMPRESSION: 1. No evidence for gastrointestinal obstruction. There is a small hiatal hernia and significant ather osclerotic disease involving the abdominal aorta and iliacs
[2024-12-19 22:17] LABS: Urine Blood Negative /uL (Negative); Urine Clarity Clear (Clear); Urine Color Colorless (Yellow); Urine Protein, UAD Negative (Negative); Urine Specific Gravity 1.005 (1.001-1.035); Urine Squamous Epithelial Cell FEW /hpf (<5); Urine Urobilinogen Normal (Negative); Urine WBC 1 /HPF (0-5)
[2024-12-20] MEDS ORDERED: DICY10CA PO (01:29)
[2024-12-20] MEDS ORDERED: ZOFR4T PO (01:29)
[2024-12-20 01:41] VITALS: BP 141/75; PULSE 62; RESP 16; TEMP 97.6; O2SAT 97
== END 2024-12-20 01:42 | disposition home or self-care (01) ==
LOC: ER 21:03
DX: K52.9 Noninfective gastroenteritis and colitis, unspecified (principal); I10 Essential (primary) hypertension; K21.9 Gastro-esophageal reflux disease without esophagitis; Z90.49 Acquired absence of other specified parts of digestive tract; Z90.710 Acquired absence of both cervix and uterus; Z98.890 Other specified postprocedural states; Z79.899 Other long term (current) drug therapy
CPT/HCPCS: 36415; 74176; 80053; 81001; 83605; 83690; 84484; 85025; 93005; 96372; 99285; J0500; Q0162

== ENCOUNTER 2025-03-30 09:25 | Outpatient (CLI) | payer MEDICAID, OTHER ==
[~2025-03-30 09:25] MED LIST changes: +DICY10CA PO; +ZOFR4T PO
[2025-03-30 10:21] LABS: Hematocrit 40.8 % (36.0-46.0); Hemoglobin 13.9 g/dL (12.2-16.2); Mean Corpuscular Hemoglobin 31.0 pg (28.0-32.0); Mean Corpuscular Volume 91.2 fL (80.0-100.0); Nucleated Red Blood Cells % 0.1 %
[2025-03-30 10:30] LABS: Alanine Aminotransferase 15 U/L (7-40); Albumin 4.2 g/dL (3.2-4.8); Alkaline Phosphatase 104 U/L (46-116); Anion Gap 9 (5-15); BUN/Creatinine Ratio 23.9 (10.0-20.0); Bilirubin, Total 0.5 mg/dL (0.2-1.0); Blood Urea Nitrogen 16 mg/dL (9-23); Calcium 9.5 mg/dL (8.7-10.4); Carbon Dioxide 27 mmol/L (20-31); Cholesterol 168 mg/dL (< 200); Glucose 100 mg/dL (74-106); HDL Cholesterol 53 mg/dL (40-59); Potassium 3.7 mmol/L (3.5-5.1); Sodium 145 mmol/L (136-145); Total Protein 6.6 g/dL (5.7-8.2); Triglycerides 138 mg/dL (< 150)
[2025-03-30 10:33] LABS: Chloride 109 mmol/L (98-107)
== END 2025-03-30 17:00 | disposition home or self-care (01) ==
LOC: LAB 09:25
PROVIDERS: ATTEND Family Medicine
DX: I10 Essential (primary) hypertension (principal); E78.1 Pure hyperglyceridemia; E88.819 Insulin resistance, unspecified
CPT/HCPCS: 36415; 80053; 80061; 82043; 85025

== ENCOUNTER 2025-04-13 06:37 | Inpatient (IN) | payer MEDICAID, OTHER ==
[2025-04-10 10:27] LABS: Hematocrit 45.0 % (36.0-46.0); Hemoglobin 14.9 g/dL (12.2-16.2); Mean Corpuscular Hemoglobin 30.3 pg (28.0-32.0); Mean Corpuscular Volume 91.4 fL (80.0-100.0); Nucleated Red Blood Cells % 0.1 %
[2025-04-10 10:31] LABS: Urine Protein, UAD Negative (Negative)
[2025-04-10 10:42] LABS: INR 0.95 (0.9-1.15); Partial Thromboplastin Time 25.4 SEC (24.5-34.5); Prothrombin Time 10.1 sec (9.3-11.8)
[2025-04-10 10:50] LABS: Alanine Aminotransferase 17 U/L (7-40); Albumin 4.5 g/dL (3.2-4.8); Alkaline Phosphatase 115 U/L (46-116); Anion Gap 9 (5-15); BUN/Creatinine Ratio 24.1 (10.0-20.0); Bilirubin, Total 0.4 mg/dL (0.2-1.0); Blood Urea Nitrogen 20 mg/dL (9-23); Calcium 10.1 mg/dL (8.7-10.4); Carbon Dioxide 27 mmol/L (20-31); Glucose 101 mg/dL (74-106); Potassium 4.4 mmol/L (3.5-5.1); Sodium 145 mmol/L (136-145); Total Protein 7.1 g/dL (5.7-8.2)
[2025-04-10 10:51] LABS: Chloride 109 mmol/L (98-107)
[~2025-04-13] VITALS: Ht 170.2 cm; Wt 63.7 kg
[2025-04-13] VITALS (7 sets, daily range): BP systolic 112–155; BP diastolic 56–84; PULSE 55–70; RESP 11–20; TEMP 98.2–98.6; O2SAT 92–98
[~2025-04-13 06:37] MED LIST changes: -DICY10CA PO; -PANT40TA2 PO; -SUCR1TAB31 PO; -ZOFR4T PO
[2025-04-13] MEDS ORDERED: fentaNYL CITRATE 100 MCG/2 ML VL ONE (09:05)
[2025-04-13] MEDS ORDERED: PROPOFOL 10 MG/ML 20 ML IV ONE (09:05)
[2025-04-13] MEDS ORDERED: GLYCOPYRROLATE 0.2 MG/ML 1ML VIAL ONE (09:05)
[2025-04-13] MEDS ORDERED: ONDANSETRON HCL 4 MG/2 ML VIAL ONE (09:05)
[2025-04-13] MEDS ORDERED: MIDAZOLAM HCL 2MG/2ML 2ml VIAL (1mg/ml) ONE (09:05)
[2025-04-13] MEDS ORDERED: LIDOCAINE W/ EPINEPHRINE 1% 20ML VIAL ONE (10:12)
[2025-04-13] MEDS ORDERED: NITROGLYCERIN 0.4 MG SL TAB SL PRN (10:15)
[2025-04-13] MEDS ORDERED: ONDANSETRON HCL 4 MG/2 ML VIAL IV PRN (10:15)
[2025-04-13] MEDS ORDERED: HYDROmorphone HCL 2 MG/ML VL/or syr IV PRN ×2 (10:15→12:00)
[2025-04-13] MEDS ORDERED: ceFAZolin 1GM/50ML 50 ML IV SCH ×2 (10:15→14:30)
[2025-04-13] MEDS ORDERED: MORPHINE SULFATE INJ 2 MG/ml SYRG IV PRN (10:15)
[2025-04-13] MEDS ORDERED: BUPIVACAINE/DEXTROSE MPF 0.75% 2 ML AMP IT ONE (10:27)
[2025-04-13] MEDS: ceFAZolin 2 GM/D5W50ml 50 ML IV ONE (10:30)
[2025-04-13] MEDS: TRANEXAMIC ACID 20 ML ONE (10:30)
[2025-04-13] MEDS: CEFEPIME 1GM/ 50ML 50 ML IV ONE (10:30)
[2025-04-13] MEDS: KETOROLAC TROMETH 30 MG/ML 1ML VIAL ONE ×2 (11:00→12:42)
[2025-04-13] MEDS: BUPIVACAINE 0.25% INJ 50ML VIAL ONE ×2 (11:00→12:42)
[2025-04-13] MEDS: MORPHINE SULF PF 5 MG/10 ML VIAL ONE (11:00)
[2025-04-13] MEDS: VANCOMYCIN HCL 1000 MG VL ONE (11:00)
[2025-04-13] MEDS ORDERED: METOCLOPRAMIDE HCL 5MG/ml INJ 2ml VIAL ONE (11:13)
[2025-04-13] MEDS ORDERED: hydrALAZINE HCL 20 MG/ML VL IV PRN (12:00)
[2025-04-13] MEDS: LACTATED RINGER'S 1,000 ML IV SCH (12:35)
--- NOTE | 2025-04-13 12:46 | DVHHP2 ---
Review of Systems Allergies: Coded Allergies: NO KNOWN ALLERGIES (Unverified , 05/27/14) Medications Current Medications Medications Dose Ordered Sig/Sai Route Start Time Stop Time Status Last Admin Dose Admin Amlodipine Besylate 5 mg DAILY PO 04/14/25 10:00 Ascorbic Acid 500 mg DAILY PO 04/14/25 10:00 Lactated Ringer's 1,000 ml @ 100 mls/hr Q10H IV 04/13/25 10:15 04/13/25 12:35 100 MLS/HR Sodium Chloride 10 ml Q8HR IV 04/13/25 14:00 Cefazolin Sodium 50 ml @ 50 mls/hr Q6H IV 04/13/25 10:15 04/13/25 23:14 Oxycodone/ Acetaminophen 1 tab Q4HP PRN PO 04/13/25 10:15 Hydromorphone HCl 1 mg Q2HP PRN IV 04/13/25 10:15 Ondansetron HCl 4 mg Q6HP PRN IV 04/13/25 10:15 Docusate Sodium 100 mg Q12HR PO 04/13/25 22:00 Nitroglycerin 0.4 mg Q5MINP PRN SL 04/13/25 10:15 Morphine Sulfate 2 mg Q30M PRN IV 04/13/25 10:15 Pantoprazole Sodium 40 mg BID@0600,1700 PO 04/13/25 17:00 Cefepime HCl 50 ml @ 12.5 mls/hr DAILY IV 04/14/25 10:00 Hydralazine HCl 2.5 mg Q20M PRN IV 04/13/25 12:00 04/13/25 13:01 Exam Vital Signs Vital Signs Date Time Temp Pulse Resp B/P (MAP) Pulse Ox O2 Delivery O2 Flow Rate FiO2 04/13/25 11:49 58 11 95 Mask 6.0 04/13/25 11:49 95 04/13/25 07:23 98.1 152/75 (100) 98.1 Labs/Xrays Labs Test 04/10/25 10:18 Range/Units White Blood Count 7.6 4.4-10.8 10^3/uL Red Blood Count 4.92 4.0-5.20 10^6/uL Hemoglobin 14.9 12.2-16.2 g/dL Hematocrit 45.0 36.0-46.0 % Mean Corpuscular Volume 91.4 80.0-100.0 fL Mean Corpuscular Hemoglobin 30.3 28.0-32.0 pg Mean Corpuscular Hemoglobin Concent 33.2 32.0-36.0 g/dL Red Cell Distribution Width 14.6 H 11.8-14.3 % Platelet Count 386 140-450 10^3/uL Mean Platelet Volume 7.9 6.9-10.8 fL Neutrophils (%) (Auto) 60.5 37.0-80.0 % Lymphocytes (%) (Auto) 26.9 10.0-50.0 % Monocytes (%) (Auto) 9.4 0.0-12.0 % Eosinophils (%) (Auto) 2.2 0.0-7.0 % Basophils (%) (Auto) 1.0 0.0-2.0 % Neutrophils # (Auto) 4.6 1.6-8.6 10 ^3/uL Lymphocytes # (Auto) 2.0 0.4-5.4 10 ^3/uL Monocytes # (Auto) 0.7 0-1.3 10 ^3/uL Eosinophils # (Auto) 0.2 0-0.8 10 ^3/uL Basophils # (Auto) 0.1 0-0.2 10 ^3/uL Nucleated Red Blood Cells 0.1 % Prothrombin Time 10.1 9.3-11.8 sec Prothrombin Time INR 0.95 0.9-1.15 Activated Partial Thromboplast Time 25.4 24.5-34.5 SEC Urine Color Light-yellow Yellow Urine Clarity Clear Clear Urine pH 5.5 5.0-9.0 Urine Specific Earth 1.025 1.001-1.035 Urine Protein Negative Negative Urine Ketones Negative Negative Urine Blood Negative Negative /uL Urine Nitrite Negative Negative Urine Bilirubin Negative Negative Urine Urobilinogen Normal Negative mg/dL Urine Leukocyte Esterase 2+ Negative /uL Urine RBC 1 0 - 4 /hpf Urine Microscopic WBC 2 0-5 /HPF Urine Squamous Epithelial Cells Few <5 /hpf Urine Bacteria None seen None Seen /hpf Urine Mucus Few None Seen Urine Glucose Normal Normal mg/dL Sodium Level 145 136-145 mmol/L Potassium Level 4.4 3.5-5.1 mmol/L Chloride Level 109 H 98-107 mmol/L Carbon Dioxide Level 27 20-31 mmol/L Anion Gap 9 5-15 Blood Urea Nitrogen 20 9-23 mg/dL Creatinine 0.83 0.550-1.02 mg/dL Glomerular Filtration Rate Calc 73 >90 mL/min BUN/Creatinine Ratio 24.1 H 10.0-20.0 Serum Glucose 101 74-106 mg/dL Calcium Level 10.1 8.7-10.4 mg/dL Total Bilirubin 0.4 0.2-1.0 mg/dL Aspartate Amino Transferase (AST) 19 13-40 U/L Alanine Aminotransferase (ALT) 17 7-40 U/L Alkaline Phosphatase 115 46-116 U/L Total Protein 7.1 5.7-8.2 g/dL Albumin 4.5 3.2-4.8 g/dL SEPSIS Sepsis Screen Physician Orders Amlodipine Tablet (Norvasc Tablet) (04/14/25 10:00) Ascorbic Acid Tablet (Vitamin C Tablet) (04/14/25 10:00) Admit (04/13/25 10:09) Patient Condition Stable (04/13/25 10:09) R Knee 3v Xray (04/13/25 10:09) Hemoglobin & Hematocrit (04/14/25 07:00) Hemoglobin & Hematocrit (04/15/25 07:00) Hemoglobin & Hematocrit (04/16/25 07:00) Regular Diet (04/13/25 Lunch) Vital Signs .PER UNIT PROTOCOL (04/13/25 10:09) Weight-Bearing Restrictions (04/13/25 10:09) Lactated Ringer's (04/13/25 10:15) Sodium Chloride Lock (Saline Lock Ns) (04/13/25 14:00) Cefazolin 1gm/50ml (Ancef) (04/13/25 10:15) Oxycodone W/ Acet 5/325mg Tab (Percocet (04/13/25 10:15) Hydromorphone Injection (Dilaudid Inject (04/13/25 10:15) Ondansetron Hcl (Zofran) (04/13/25 10:15) Docusate Sodium Capsule (Colace Capsule) (04/13/25 22:00) CPM (04/13/25 10:09) Pt Request For Service (04/13/25 10:09) Comprehensive Metabolic Panel (04/14/25 04:00) Call/Page Hospitalist/Atten Fo (04/13/25 10:09) Cpm Machine To Operative Leg (04/13/25 10:09) Incentive Spirometry (04/13/25 10:09) Nitroglycerin Sublingual (Ntrostat Subli (04/13/25 10:15) Morphine Sulfate Injection (04/13/25 10:15) Stat Ekg For Chest Pain (04/13/25 10:09) Notify Md Of Changes From Base (04/13/25 10:09) Test Carrier For 24 Hours (04/13/25 10:09) Emergency Dysrhythmia Protocol (04/13/25 10:09) Rhythm Strips Once Every Shift (04/13/25 10:09) Oxygen By Nasal Cannula (04/13/25 10:09) Pantoprazole Tablet (Protonix Tablet) (04/13/25 17:00) Aspirin Enteric Coated Tablet (Ecotrin E (04/14/25 22:00) Cefepime 1gm/ 50ml (Maxipime 1gm/50ml) (04/14/25 10:00) Apply Ice To Affected Area (04/13/25 10:09) * Hospitalist Consult (04/13/25 ) Oxygen By Face Mask (04/13/25 11:56) Fire Adjuster (04/13/25 11:56) Notify Anesth. For Changes: (04/13/25 11:56) Pulse Ox Assessment (04/13/25 11:56) Discharge To Room Per Criteria (04/13/25 11:56) Hydralazine Injection (Apresoline Inject (04/13/25 12:00) Vital Signs Date Time Temp Pulse Resp B/P (MAP) Pulse Ox O2 Delivery O2 Flow Rate FiO2 04/13/25 11:49 58 11 95 Mask 6.0 04/13/25 11:49 Mask 6.0 95 04/13/25 07:23 98.1 64 18 152/75 (100) 98 98.1 Medications Medications Dose Ordered Sig/Sai Route Start Time Stop Time Status Last Admin Dose Admin Bupivacaine HCl 50 ml STK-MED ONCE .ROUTE 04/13/25 10:11 04/13/25 10:09 DC 04/13/25 11:00 40 ML Cefazolin Sodium/ Dextrose 50 ml @ ud STK-MED ONCE IV 04/13/25 07:23 04/13/25 07:22 DC 04/13/25 10:30 Cefepime HCl 50 ml @ ud STK-MED ONCE IV 04/13/25 08:06 04/13/25 08:04 DC 04/13/25 10:30 Ketorolac Tromethamine 30 mg STK-MED ONCE .ROUTE 04/13/25 09:05 04/13/25 09:03 DC 04/13/25 11:00 30 MG Lactated Ringer's 1,000 ml @ 100 mls/hr Q10H IV 04/13/25 10:15 04/13/25 12:35 100 MLS/HR Morphine Sulfate 5 mg STK-MED ONCE .ROUTE 04/13/25 09:05 04/13/25 09:03 DC 04/13/25 11:00 5 MG Tranexamic Acid 20 ml @ ud STK-MED ONCE .ROUTE 04/13/25 08:10 04/13/25 08:09 DC 04/13/25 10:30 Vancomycin HCl 2,000 mg STK-MED ONCE .ROUTE 04/13/25 08:07 04/13/25 08:05 DC 04/13/25 11:00 2,000 MG Assessment/Plan Assessment/Plan SEE DICTATED NOTE Plan discussed with: Patient Date of Service: Apr 13, 2025 Billing Provider: DENNISE CORDON MD Common Visit Codes: [id number] INP/OBS CARE (HIGH) Secondary Visit Codes: [id number] CARE PLAN 30 MINUTES DENNISE CORDON MD Apr 13, 2025 12:46
--- NOTE | 2025-04-13 12:59 | DVHHP ---
HISTORY OF PRESENT ILLNESS: The patient is a 74-year-old lady who is being admitted after she underwent surgery on the right knee for DJD of the knee. The patient at this time complains of shivering. No chest pain, no shortness of breath, no nausea or vomiting. REVIEW OF SYSTEMS: Review of the rest of the other systems is currently negative. PAST MEDICAL HISTORY: Significant for hypertension. MEDICATIONS: She takes amlodipine and omeprazole. ALLERGIES: No known drug allergies. SOCIAL HISTORY: Denies smoking or alcohol. Lives with her daughter. FAMILY HISTORY: Negative. PHYSICAL EXAMINATION: GENERAL: The patient is awake and alert. VITAL SIGNS: Temperature of 98.1, pulse 64 per minute, blood pressure 150/75. SHEENT: Unremarkable. NECK: There is no JVD, no pedal edema. LUNGS: Equal bilaterally. No added sounds. CARDIOVASCULAR: S1 and S2 is regular without murmurs. ABDOMEN: Soft. There is no organomegaly. NEUROLOGIC: Nonfocal. MUSCULOSKELETAL: The right knee is currently in a dressing. ASSESSMENT AND PLAN: * Hypertension for which the patient will be continued on amlodipine. * GERD. * Status post right knee surgery for DJD of the knee for which she will be placed on pain medication and receive physical therapy. * Advanced care planning: The patient is a full code-Time spent was 18 minutes. MD BISHOP Hoover/SREEDHAR TID: [id number] RECEIPT: [id number] MTDD
--- NOTE | 2025-04-13 14:11 | DVH ---
EXAM: XY R KNEE 3V XRAY CLINICAL INDICATION: S/P SURGERY TECHNIQUE: XY R KNEE 3V XRAY Comparison: None FINDINGS/IMPRESSION: There is no evidence of acute fracture or dislocation. Right knee arthroplasty.
[2025-04-13] MEDS: SODIUM CHLOR 0.9% PF (SALINE LOCK) 10ML VIAL/SYR IV SCH (16:31)
[2025-04-13] MEDS: ONDANSETRON HCL 4 MG/2 ML VIAL IV ONE (16:31)
[2025-04-13] MEDS: PANTOPRAZOLE 40 MG TAB PO SCH (17:12)
[2025-04-13] MEDS: ceFAZolin 1GM/50ML 50 ML IV SCH (17:13)
[2025-04-13] MEDS: DOCUSATE SOD 100 MG CAP PO SCH (22:00)
[2025-04-14] VITALS (8 sets, daily range): BP systolic 134–160; BP diastolic 67–81; PULSE 61–78; RESP 15–18; TEMP 97.9–99; O2SAT 93–95
[2025-04-14] MEDS: LISINOPRIL 5 MG TAB PO ONE (01:43)
[2025-04-14 06:48] LABS: Hematocrit 38.3 % (36.0-46.0); Hemoglobin 12.9 g/dL (12.2-16.2); Mean Corpuscular Hemoglobin 31.2 pg (28.0-32.0); Mean Corpuscular Volume 92.9 fL (80.0-100.0); Nucleated Red Blood Cells % 0.0 %
[2025-04-14 07:03] LABS: Albumin 3.6 g/dL (3.2-4.8); Alkaline Phosphatase 106 U/L (46-116); Anion Gap 12 (5-15); BUN/Creatinine Ratio 15.8 (10.0-20.0); Blood Urea Nitrogen 12 mg/dL (9-23); Calcium 9.5 mg/dL (8.7-10.4); Carbon Dioxide 24 mmol/L (20-31); Chloride 104 mmol/L (98-107); Potassium 4.0 mmol/L (3.5-5.1); Sodium 140 mmol/L (136-145); Total Protein 6.0 g/dL (5.7-8.2)
[2025-04-14 07:04] LABS: Bilirubin, Total 0.4 mg/dL (0.2-1.0)
[2025-04-14 07:07] LABS: Alanine Aminotransferase 89 U/L (7-40); Glucose 140 mg/dL (74-106)
--- NOTE | 2025-04-14 07:43 | DVHPN2 ---
Progress Note Date Seen: Apr 14, 2025 Medical Necessity Reason Pt with a Central, PICC or Fol: No Subjective Patient reports: No new complaints Objective vital signs Vital Sign Date Time Temp Pulse Resp B/P (MAP) Pulse Ox O2 Delivery O2 Flow Rate FiO2 04/14/25 06:00 78 147/81 (103) 04/14/25 05:00 99.0 18 95 99.0 04/13/25 20:00 Room Air* 0 21 Total Intake and Output 04/13/25 04/13/25 04/14/25 15:00 23:00 07:00 Intake Total 220 ml 650 ml 450 ml Balance 220 ml 650 ml 450 ml medications Current Medications Medications Dose Ordered Sig/Sai Route Start Time Stop Time Status Last Admin Dose Admin Amlodipine Besylate 5 mg DAILY PO 04/14/25 10:00 Ascorbic Acid 500 mg DAILY PO 04/14/25 10:00 Lactated Ringer's 1,000 ml @ 100 mls/hr Q10H IV 04/13/25 10:15 04/13/25 12:35 100 MLS/HR Sodium Chloride 10 ml Q8HR IV 04/13/25 14:00 04/14/25 06:06 10 ML Oxycodone/ Acetaminophen 1 tab Q4HP PRN PO 04/13/25 10:15 Ondansetron HCl 4 mg Q6HP PRN IV 04/13/25 10:15 Docusate Sodium 100 mg Q12HR PO 04/13/25 22:00 Nitroglycerin 0.4 mg Q5MINP PRN SL 04/13/25 10:15 Morphine Sulfate 2 mg Q30M PRN IV 04/13/25 10:15 Pantoprazole Sodium 40 mg BID@0600,1700 PO 04/13/25 17:00 04/14/25 06:06 40 MG Cefepime HCl 50 ml @ 12.5 mls/hr DAILY IV 04/14/25 10:00 Hydromorphone HCl 1 mg Q3HP PRN IV 04/13/25 13:00 Examination: GENERAL:Normal, MSK:Abnormal laboratory and microbiology Laboratory Tests 04/14/25 05:51 Test 04/14/25 05:51 Range/Units Serum Glucose 140 H 74-106 mg/dL Problem List/Assessment/Plan Problem List/Assessment/Plan 74 year old female who is s/p Right TKA POD 1 1. Pain control 2. DVT ppx 3. CPM as ordered 4. physical therapy 5. d/c planning for home tomorrow Plan discussed with: Patient Date of Service: Apr 14, 2025 Billing Provider: DOROTHY SOLORIO MD Common Visit Codes: NOT BILLABLE ALLI MATIAS NP Apr 14, 2025 07:43
--- NOTE | 2025-04-14 08:21 | DVHOP2 ---
Operative Report - 2 Report Details Date: 04/13/25 Preop Diagnosis: Right knee osteoarthritis Postop Diagnosis: Right knee osteoarthritis Surgeon: James Gonzalez MD Ecommerce Project Manager: Trevor FRANKLIN Anesthesiologist: Jonathan GUSTAFSON Anesthesia: General Consent: The patient was informed of the risks and benefits of the procedure. These include but are not limited to complications of anesthesia, postoperative infection, incomplete relief of symptoms, recurrence of symptoms, damage to blood vessels, nerves and tendons, deep venous thrombosis, pulmonary embolism and possible need for repeat surgery in the future. Estimated Blood Loss: 50 cc Name of Procedure Performed Right total knee arthroplasty using computer navigation Procedure Details Procedure Details: FINDINGS: Extensive degenerative disease with grade IV changes INDICATION: This patient has failed non-operative treatments for knee arthritis and is now indicated for a total knee replacement. Preoperatively in the waiting area as well as in the office, I had a long discussion with the patient regarding the plan, the expected outcome, the risks, benefits, and alternatives of surgery. The risks include, but are not limited to, infection (which may require future surgery and removal of implants) , bleeding (which may require a transfusion), damage to nerves, arteries, veins, tendons, muscles and other adjacent structures. Also discussed the possibilities of intraoperative fractures, implant loosening, heterotopic bone formation, and revision for varie ty of reasons, and medical complications etc. This was discussed at length and consent has been obtained. DESCRIPTION OF PROCEDURE: In the preoperative holding area, the consent was reviewed and the appropriate extremity was verified by the patient and marked with my initials. The patient was then transferred to the operating theatre. Appropriate anesthesia was induced. All bony prominences were well padded. A time out was performed verifying the side and site of surgery according to standard protocol. Preoperative antibiotics were given 10 minutes prior to tourniquet inflation. Tranexamic acid was given. A well padded thigh tourniquet was applied. The extremity was then prepped and draped in the usual sterile fashion. The extremity was exsanguinated and the tourniquet was inflated. We then made a mid-line incision, which we continued to the underlying capsular tissue. We performed a medial parapatellar arthrotomy. We periosteally exposed the proximal tibia, excised the anterior fat pad and synovium from the distal aspect of the femur. We then subluxed the patella and brought the knee up into flexion. The lateral meniscus, ACL, and PCL were released. We used the appropriate guide with attached computer navigation to secure the distal femoral cutting block to the femur with pins and completed the distal femoral cut in 0 degrees to the mechanical axis with an oscillating saw. We removed the distal femoral cutting block and turned our attention to the tibia. We used the extramedullary tibial alignment guide with computer navigation to secure the proximal tibial cutting block to the tibia with pins, setting it for a 2 mm cut from the more involved side, and completed the proximal tibial cut. We then used the spacer block and alignment liliam to check the varus-valgus angle of our cuts and the extension gap. The knee was then balanced in extension to varus/valgus stress. We marked our femoral anatomy, including [place]'s line and the epicondylar axis. Using that as a rotational guide, we used the sizing guide to size our femur properly, using a stylus to ensure there would be no notching. We then used the AP cutting guide to make our anterior and posterior cuts and chamfer cuts with an oscillating saw. We again checked the flexion and extension gaps and coronal balancing. Next, we sized our tibia and secured a baseplate with appropriate rotation with pins. We placed a trial femur in position and completed preparation of the notch with reamers and box osteotome and placed a trial notch in position. We used trials to choose our liner size and then placed the liner in place and reduced the knee. We used an oscillating saw to resurface the patella, and used a guide to choose the button size and completed patella preparation with the drill. We then placed a trial button in place. At this point, we checked our seven parameters: 1) Limb alignment 2) Extension 3) Flexion against gravity 4) Flexion stability 5) Varus-valgus balancing 6) Component rotation 7) Patella tracking We were satisfied with these and removed all trials with the exception of the baseplate. We completed preparation of the tibia with the appropriate reamer and keel impactor and then removed the baseplate. We placed a bone plug in the distal femur and then irrigated and dried all bony surfaces and injected our pain cocktail. impacted our tibial, femoral and patellar components into position. We impacted our liner and reduced the knee and held it with axial loading. We released the tourniquet and achieved hemostasis where necessary. A dilute betadine solution (17.5mL in 500mL saline) was used to wash the joint and left to sit for 3 minutes. This was then irrigated out with copious amounts of pulse lavage. We sprinkled 1g vancomycin powder below the fascia and 1g above the fascia. We copiously irrigated the knee. We re-checked our seven parameters. We closed our capsular incision with a PDS style suture. We irrigated further. We closed the subcutaneous tissue with Vicryl suture and re-approximated the skin with tito. We verified all lower extremity compartments were soft and compressible and that we had intact distal pulses. We wrapped the extremity in sterile Webril and chriss bandage. The patient was transferred to the recovery room in stable condition. Condition Good Disposition Still a Patient JAMES GONZALEZ MD Apr 14, 2025 08:21
[2025-04-14] MEDS: ASCORBIC ACID 500 MG TAB PO SCH (08:40)
[2025-04-14] MEDS: CEFEPIME 1GM/ 50ML 50 ML IV SCH (08:46)
[2025-04-14] MEDS: OXYCODONE W/ ACETAMINOPHEN 5/325MG TABLET PO PRN (08:53)
--- NOTE | 2025-04-14 11:16 | DVHPN2 ---
Progress Note Date Seen: Apr 14, 2025 Medical Necessity Reason Pt with a Central, PICC or Fol: No Subjective Patient reports: No new complaints Review of Systems: HEENT:Normal, CVS:Normal, RESPIRATORY:Normal, GI:Normal, :Normal, MSK:Normal, NEURO:Normal Objective vital signs Vital Sign Date Time Temp Pulse Resp B/P (MAP) Pulse Ox O2 Delivery O2 Flow Rate FiO2 04/14/25 08:40 145/75 04/14/25 08:30 97.9 62 16 95 97.9 04/14/25 08:00 Room Air* 0 21 Total Intake and Output 04/13/25 04/13/25 04/14/25 15:00 23:00 07:00 Intake Total 220 ml 650 ml 450 ml Balance 220 ml 650 ml 450 ml medications Current Medications Medications Dose Ordered Sig/Sai Route Start Time Stop Time Status Last Admin Dose Admin Amlodipine Besylate 5 mg DAILY PO 04/14/25 10:00 04/14/25 08:40 5 MG Ascorbic Acid 500 mg DAILY PO 04/14/25 10:00 04/14/25 08:40 500 MG Lactated Ringer's 1,000 ml @ 100 mls/hr Q10H IV 04/13/25 10:15 04/13/25 12:35 100 MLS/HR Sodium Chloride 10 ml Q8HR IV 04/13/25 14:00 04/14/25 06:06 10 ML Oxycodone/ Acetaminophen 1 tab Q4HP PRN PO 04/13/25 10:15 04/14/25 08:53 1 TAB Ondansetron HCl 4 mg Q6HP PRN IV 04/13/25 10:15 Docusate Sodium 100 mg Q12HR PO 04/13/25 22:00 Nitroglycerin 0.4 mg Q5MINP PRN SL 04/13/25 10:15 Morphine Sulfate 2 mg Q30M PRN IV 04/13/25 10:15 Pantoprazole Sodium 40 mg BID@0600,1700 PO 04/13/25 17:00 04/14/25 06:06 40 MG Cefepime HCl 50 ml @ 12.5 mls/hr DAILY IV 04/14/25 10:00 04/14/25 08:46 12.5 MLS/HR Hydromorphone HCl 1 mg Q3HP PRN IV 04/13/25 13:00 Examination: GENERAL:Normal, HEENT:Normal, NECK:Normal, LUNGS:Normal, CVS:Normal, ABDOMEN:Normal, ABDOMEN:Abnormal (LEFT KNEE DRESSING), MSK:Normal, SKIN:Normal, NEURO:Normal, :Normal laboratory and microbiology Laboratory Tests 04/14/25 05:51 Test 04/14/25 05:51 Range/Units Serum Glucose 140 H 74-106 mg/dL Problem List/Assessment/Plan Problem List/Assessment/Plan * Hypertension for which the patient will be continued on amlodipine. * GERD. * Status post right knee surgery for DJD of the knee for which she will be placed on pain medication and receive physical therapy. * Advanced care planning: The patient is a full code-Time spent was 18 minutes. Plan discussed with: Patient My Orders My Orders Orders - DENNISE CORDON MD Procedure Category Date Status Time Hydromorphone PHA 04/13/25 In Process Injection (Dilaudid 13:00 Diphenhdramine PHA 04/14/25 Verified Injection (Benadryl 11:15 * Manager Pharmacy CONS 04/14/25 Verified Consult Date of Service: Apr 14, 2025 Billing Provider: DENNISE CORDON MD Common Visit Codes: [id number] INP/OBS CARE(HIGH) Secondary Visit Codes: [id number] CARE PLAN 30 MINUTES DENNISE CORDON MD Apr 14, 2025 11:16
[2025-04-14] MEDS: diphenhdrAMINE HCL 50 MG/1 ML VL IV PRN (11:34)
[2025-04-14] MEDS: HYDROmorphone HCL 2 MG/ML VL/or syr IV PRN (15:44)
[2025-04-14] MEDS: ASPirin-EC 81 mg tab PO ONE (22:09)
[2025-04-15 01:00] VITALS: BP 160/79; PULSE 80; RESP 17; TEMP 98.1; O2SAT 93
[2025-04-15 01:35] VITALS: BP 138/73; PULSE 72
[2025-04-15 05:00] VITALS: BP 136/66; PULSE 80; RESP 17; TEMP 98.5; O2SAT 94
[2025-04-15 06:46] LABS: Hematocrit 35.7 % (36.0-46.0); Hemoglobin 12.1 g/dL (12.2-16.2)
--- NOTE | 2025-04-15 07:42 | DVHPN2 ---
Progress Note Date Seen: Apr 15, 2025 Medical Necessity Reason Pt with a Central, PICC or Fol: No Subjective Patient reports: No new complaints Objective vital signs Vital Sign Date Time Temp Pulse Resp B/P (MAP) Pulse Ox O2 Delivery O2 Flow Rate FiO2 04/15/25 06:27 70 16 141/71 04/15/25 05:00 98.5 94 98.5 04/14/25 20:03 Room Air* 0 21 Total Intake and Output 04/14/25 04/14/25 04/15/25 15:00 23:00 07:00 Intake Total 50 ml 750 ml 500 ml Balance 50 ml 750 ml 500 ml medications Current Medications Medications Dose Ordered Sig/Sai Route Start Time Stop Time Status Last Admin Dose Admin Amlodipine Besylate 5 mg DAILY PO 04/14/25 10:00 04/14/25 08:40 5 MG Ascorbic Acid 500 mg DAILY PO 04/14/25 10:00 04/14/25 08:40 500 MG Lactated Ringer's 1,000 ml @ 100 mls/hr Q10H IV 04/13/25 10:15 04/13/25 12:35 100 MLS/HR Sodium Chloride 10 ml Q8HR IV 04/13/25 14:00 04/15/25 06:01 10 ML Oxycodone/ Acetaminophen 1 tab Q4HP PRN PO 04/13/25 10:15 04/14/25 14:08 1 TAB Ondansetron HCl 4 mg Q6HP PRN IV 04/13/25 10:15 Docusate Sodium 100 mg Q12HR PO 04/13/25 22:00 04/14/25 21:02 100 MG Nitroglycerin 0.4 mg Q5MINP PRN SL 04/13/25 10:15 Morphine Sulfate 2 mg Q30M PRN IV 04/13/25 10:15 Pantoprazole Sodium 40 mg BID@0600,1700 PO 04/13/25 17:00 04/15/25 05:44 40 MG Cefepime HCl 50 ml @ 12.5 mls/hr DAILY IV 04/14/25 10:00 04/14/25 08:46 12.5 MLS/HR Hydromorphone HCl 1 mg Q3HP PRN IV 04/13/25 13:00 04/15/25 05:55 1 MG Diphenhydramine HCl 25 mg Q6HP PRN IV 04/14/25 11:15 04/14/25 21:02 25 MG Examination: GENERAL:Normal, MSK:Abnormal laboratory and microbiology Laboratory Tests 04/15/25 05:38 04/14/25 05:51 Test 04/14/25 05:51 Range/Units Serum Glucose 140 H 74-106 mg/dL Problem List/Assessment/Plan Problem List/Assessment/Plan 74 year old female who is s/p Right TKA POD 2 1. Pain control 2. DVT ppx 3. CPM as ordered 4. physical therapy 5. prescriptions for pain medication, DVT ppx and antibiotic sent on 04/14/2025 to [facility]o KATE Villareal 6. dressings to remain clean, dry and intact until first postop visit 7. follow up in 2 weeks at [facility] ortho clinic 8. clear for discharge from orthopedic standpoint with the following discharge recommendations: Total Knee Arthroplasty Discharge Instructions Wound Care 1. You will likely have a gel-type dressing over your wound, you may keep this on for 7-14 days after leaving the hospital until your first post-op visit, unless it becomes soiled or your skin becomes irritated. If a wound vac dressing is placed on your knee this is to be left in place for one week and will be changed as needed. After your remove the dressing or wound vac, the home health nurse may place clean dry dressing over your wound. Keep wound covered, clean and dry for two weeks. 2. [place] will be removed during your initial post-op visit. If you have concerns about our wound, please call the office immediately. If nervous about staple removal can take pain pill one hour prior to appointment. 3. If there is drainage from your wound, change the dressing daily until it stops. If drainage lasts more than 10 days, call our office. 4. Low grade (up to 100 degrees) fever is common for the first week after surgery. You should take your temperature daily. If you have fevers of 101 or more, please call the office. Medication Management 1. You will be discharged with pain medication, a blood thinner (unless you were previously on a blood thinner prior to surgery) and stool softener. Please follow the instructions regarding these medications as provided by your nurse at the hospital upon discharge. 2. Blood clots in the leg are a known complication of surgery. It is very important that you take the medication to protect against clots. Depending on what you are discharged on typically it is Lovenox 40mg daily for 2 weeks or Aspirin 81mg twice daily for 4 weeks. After you finish this, you should then take baby Aspirin (81mg) once daily for 2 weeks. 3. You should restart all of your prescription medications once discharged from the hospital/surgery center unless specifically instructed otherwise. 4. Herbal supplements may be restarted 2 weeks after surgery. 5. If you have been given Coumadin as a blood thinner, please follow up with your spanish speaking babysitter during the first two weeks after surgery to review medications and overall medical well-being. 6. Please note that narcotic pain medication may cause constipation. Please remember to take stool softeners (Colace) when using narcotics to help reduce the change of constipation. You should not use alcohol together with narcotic medication. Activity 1. CPM as ordered, goal is for 6 hours every day for the first 21 days of your recovry. Can break it up in to increments of 2-3 hours at a time. Most hospitals will start at 45 degrees of flexion, and increase by 5 degrees daily until the machine has been maxed out. The goal is to be at 90 degrees by first postop visit in 2 weeks. 2. No pool, jacuzzi, beach, hoyos or bath for 6 weeks. Once all scabbing has fallen off patient can begin soaking and submerging knee under water for 15 minute periods at a time. 3. Physical therapy is critical in the first 2 weeks. If having issues with scheduling please inform office. 4. No running or jumping for 6 weeks. 5. Can walk and bear as much weight on the surgical leg as tolerated. No restrictions in regards to walking or standing. [facility] [place] 1. Driving is not permitted within the first 2 weeks. 2. Your first postoperative visit will take place 2 weeks after discharge. Please call the office once you are home from the hospital to arrange this appointment. 3. Antibiotic preventative treatment is required before dental or other invasive procedures. Please ask your surgeon about this at your first postoperative visit. If you experience chest pain, shortness of breath or severe painful calf swelling, go to the nearest emergency room to be evaluated. Please call our office once your situation is stabilized. Plan discussed with: Patient Date of Service: Apr 15, 2025 Billing Provider: DOROTHY SOLORIO MD Common Visit Codes: NOT BILLABLE ALLI MATIAS NP Apr 15, 2025 07:42
[2025-04-15 09:00] VITALS: BP 182/87; PULSE 70; RESP 16; TEMP 98.4; O2SAT 90
--- NOTE | 2025-04-15 09:54 | DVHDS2 ---
Discharge Summary Date of Admission Apr 13, 2025 at 10:09 Date of Discharge: Apr 15, 2025 Labs/Diagnostic Data: Laboratory Results Test 04/15/25 05:38 04/14/25 05:51 04/10/25 10:18 Hemoglobin 12.1 g/dL (12.2-16.2) Hematocrit 35.7 % (36.0-46.0) White Blood Count 15.4 10^3/uL (4.4-10.8) Red Blood Count 4.12 10^6/uL (4.0-5.20) Mean Corpuscular Volume 92.9 fL (80.0-100.0) Mean Corpuscular Hemoglobin 31.2 pg (28.0-32.0) Mean Corpuscular Hemoglobin Concent 33.6 g/dL (32.0-36.0) Red Cell Distribution Width 14.2 % (11.8-14.3) Platelet Count 290 10^3/uL (140-450) Mean Platelet Volume 8.3 fL (6.9-10.8) Neutrophils (%) (Auto) 80.6 % (37.0-80.0) Lymphocytes (%) (Auto) 9.4 % (10.0-50.0) Monocytes (%) (Auto) 9.9 % (0.0-12.0) Eosinophils (%) (Auto) 0.0 % (0.0-7.0) Basophils (%) (Auto) 0.1 % (0.0-2.0) Neutrophils # (Auto) 12.4 10 ^3/uL (1.6-8.6) Lymphocytes # (Auto) 1.5 10 ^3/uL (0.4-5.4) Monocytes # (Auto) 1.5 10 ^3/uL (0-1.3) Eosinophils # (Auto) 0 10 ^3/uL (0-0.8) Basophils # (Auto) 0 10 ^3/uL (0-0.2) Nucleated Red Blood Cells 0.0 % Sodium Level 140 mmol/L (136-145) Potassium Level 4.0 mmol/L (3.5-5.1) Chloride Level 104 mmol/L (98-107) Carbon Dioxide Level 24 mmol/L (20-31) Anion Gap 12 (5-15) Blood Urea Nitrogen 12 mg/dL (9-23) Creatinine 0.76 mg/dL (0.550-1.02) Glomerular Filtration Rate Calc 81 mL/min (>90) BUN/Creatinine Ratio 15.8 (10.0-20.0) Serum Glucose 140 mg/dL (74-106) Calcium Level 9.5 mg/dL (8.7-10.4) Total Bilirubin 0.4 mg/dL (0.2-1.0) Aspartate Amino Transferase (AST) 73 U/L (13-40) Alanine Aminotransferase (ALT) 89 U/L (7-40) Alkaline Phosphatase 106 U/L (46-116) Total Protein 6.0 g/dL (5.7-8.2) Albumin 3.6 g/dL (3.2-4.8) Prothrombin Time 10.1 sec (9.3-11.8) Prothrombin Time INR 0.95 (0.9-1.15) Activated Partial Thromboplast Time 25.4 SEC (24.5-34.5) Urine Color Light-yellow (Yellow) Urine Clarity Clear (Clear) Urine pH 5.5 (5.0-9.0) Urine Specific [place] 1.025 (1.001-1.035) Urine Protein Negative (Negative) Urine Ketones Negative (Negative) Urine Blood Negative /uL (Negative) Urine Nitrite Negative (Negative) Urine Bilirubin Negative (Negative) Urine Urobilinogen Normal mg/dL (Negative) Urine Leukocyte Esterase 2+ /uL (Negative) Urine RBC 1 /hpf (0 - 4) Urine Microscopic WBC 2 /HPF (0-5) Urine Squamous Epithelial Cells Few /hpf (<5) Urine Bacteria None seen /hpf (None Seen) Urine Mucus Few (None Seen) Urine Glucose Normal mg/dL (Normal) Other Laboratory Tests 04/15/25 05:38 04/14/25 05:51 Brief Hx & Hospital Course: SEE DICTATED NOTE Condition at Discharge: Good Final Diagnosis/Problems List Right knee osteoarthritis Discharge Disposition: Home Discharge Instruct/Medications Diet: Cardiac 2g Na,low cholest Activity: No Restrictions, As Tolerated Follow Up/Referral: FU WITH PCP/ORTHO Medications: MEDS PER [facility] Scheduled Amlodipine Besylate (Amlodipine Besylate), 5 MG PO DAILY, (Reported) Calcium Ascorbate (Vitamin C), 500 MG PO DAILY, (Reported) Omeprazole (Omeprazole Dr), 40 MG PO DAILY, (Reported) Discharge Statement: "Patient was advised to return to the ER or call 911 if any headaches, dizziness, shortness of breath, chest pain, abdominal pain, bleeding, fevers, or worsening of medical condition. Patient was counseled about treatment plan, medications, possible side effects, patientverbalized understanding. All questions were answered to the best of my ability. This discharge took greater then 30 minutes in planning, reviewing documentation, counseling the patient, and discussing with other team members." ASSESSMENT ASSESSMENT Assessment Right knee osteoarthritis Date of Service: Apr 15, 2025 Billing Provider: DENNISE CORDON MD Common Visit Codes: [id number] DISCH DAY >30min DENNISE CORDON MD Apr 15, 2025 09:54
--- NOTE | 2025-04-15 10:04 | DVHDS ---
DATE OF DISCHARGE: 04/15/2025 The patient is a 74-year-old lady who is admitted after she underwent surgery on the right knee for DJD of the knee. She has a previous history of hypertension. HOSPITAL COURSE: The patient did well postoperatively. Hemoglobin has been stable. The patient will now be discharged home to resume her home medications and have physical therapy and home walker. She will followup with her primary and orthopedics. FINAL DIAGNOSES: * Hypertension. * GERD. * Transaminitis. * Status post right knee surgery for DJD of the knee. Time spent in discharge planning and review of plan with the patient, nursing and family was 36 minutes. MD BISHOP Hoover/YEE TID: [id number] RECEIPT: [id number]
[2025-04-15 13:00] VITALS: BP 150/82; PULSE 72; RESP 16; TEMP 98.2; O2SAT 92
[2025-04-15 15:59] VITALS: BP 145/80; PULSE 72; RESP 16; TEMP 98.2; O2SAT 94
== END 2025-04-15 17:05 | disposition home health service (06) | DRG 470 ==
LOC: SUR 06:37 → OVERFLOW 10:09 → EAST 17:04
PROVIDERS: ADMIT Internal Medicine; ATTEND Internal Medicine
PROC: 8E0YXBZ Computer Assisted Procedure of Lower Extremity (ICD-10-PCS; 2025-04-13)
PROC: 0SRC0JZ Replacement of Right Knee Joint with Synthetic Substitute, Open Approach (ICD-10-PCS; principal; 2025-04-13 10:17)
DX: M17.11 Unilateral primary osteoarthritis, right knee (principal); K21.9 Gastro-esophageal reflux disease without esophagitis; I10 Essential (primary) hypertension; R74.01 Elevation of levels of liver transaminase levels; Z79.899 Other long term (current) drug therapy
CPT/HCPCS: 36415; 73562; 80053; 81001; 85014; 85018; 85025; 85610; 85730; 86850; 86900; 86901; 97110; 97116; 97163; G0378; J1885; J2250; J2405; J2704; J3490

== ENCOUNTER 2025-06-17 12:00 | Outpatient (CLI) | payer MEDICAID, OTHER ==
[2025-06-17 13:36] LABS: Hematocrit 42.2 % (36.0-46.0); Hemoglobin 14.1 g/dL (12.2-16.2); Mean Corpuscular Hemoglobin 30.3 pg (28.0-32.0); Mean Corpuscular Volume 90.8 fL (80.0-100.0); Nucleated Red Blood Cells % 0.0 %
[2025-06-17 14:42] LABS: Alanine Aminotransferase 14 U/L (7-40); Albumin 4.4 g/dL (3.2-4.8); Alkaline Phosphatase 113 U/L (46-116); Anion Gap 9 (5-15); BUN/Creatinine Ratio 23.9 (10.0-20.0); Bilirubin, Total 0.6 mg/dL (0.2-1.0); Blood Urea Nitrogen 17 mg/dL (9-23); Calcium 9.6 mg/dL (8.7-10.4); Carbon Dioxide 28 mmol/L (20-31); Chloride 107 mmol/L (98-107); Cholesterol 164 mg/dL (< 200); Glucose 95 mg/dL (74-106); HDL Cholesterol 55 mg/dL (40-59); Potassium 4.0 mmol/L (3.5-5.1); Sodium 144 mmol/L (136-145); Total Protein 7.5 g/dL (5.7-8.2); Triglycerides 127 mg/dL (< 150)
== END 2025-06-17 17:00 | disposition home or self-care (01) ==
LOC: LAB 12:00
PROVIDERS: ATTEND Family Medicine
DX: I10 Essential (primary) hypertension (principal); E78.1 Pure hyperglyceridemia; K21.9 Gastro-esophageal reflux disease without esophagitis; M81.0 Age-related osteoporosis without current pathological fracture; G89.29 Other chronic pain; Z79.899 Other long term (current) drug therapy
CPT/HCPCS: 36415; 80053; 80061; 82306; 83036; 85025

== ENCOUNTER → 2025-07-16 | Outpatient (CLI) | payer MEDICAID, OTHER ==
[2025-07-16 11:20] LABS: Alanine Aminotransferase 14 U/L (7-40); Albumin 4.5 g/dL (3.2-4.8); Alkaline Phosphatase 115 U/L (46-116); Anion Gap 11 (5-15); BUN/Creatinine Ratio 16.7 (10.0-20.0); Blood Urea Nitrogen 12 mg/dL (9-23); Calcium 9.9 mg/dL (8.7-10.4); Carbon Dioxide 28 mmol/L (20-31); Chloride 105 mmol/L (98-107); Potassium 4.1 mmol/L (3.5-5.1); Sodium 144 mmol/L (136-145); Total Protein 7.5 g/dL (5.7-8.2)
[2025-07-16 11:30] LABS: Bilirubin, Total 0.4 mg/dL (0.2-1.0)
[2025-07-16 11:36] LABS: Glucose 108 mg/dL (74-106)
[2025-07-16 13:29] LABS: Cholesterol 169 mg/dL (< 200)
[2025-07-16 13:30] LABS: HDL Cholesterol 53 mg/dL (40-59)
[2025-07-16 13:47] LABS: Triglycerides 189 mg/dL (< 150)
== END | disposition home or self-care (01) ==
LOC: LAB 09:13
PROVIDERS: ATTEND Family Medicine
DX: I10 Essential (primary) hypertension (principal); E78.5 Hyperlipidemia, unspecified; E88.819 Insulin resistance, unspecified; Z79.899 Other long term (current) drug therapy
CPT/HCPCS: 36415; 80053; 80061; 82043; 83036